=== PATIENT | male | born 1940 | race Asian ===

== ENCOUNTER 2017-09-15 16:00 | Inpatient (IN) | payer OTHER ==
[~2017-09-15] VITALS: Ht 162.6 cm; Wt 74.4 kg
[2017-09-15 16:00] VITALS: BP_SYST 132
[~2017-09-15 16:00] MED LIST: ALIS150T PO; HYDR12.5 PO; LIP20 PO; VALS320T2 PO
[2017-09-15 17:16] LABS: BASOPHILS % (AUTO) 0.8 % (0.0-2.0); EOSINOPHILS # (AUTO) 0.1 K/uL (0.0-0.4); EOSINOPHILS % (AUTO) 2.3 % (0.0-4.0); HEMATOCRIT 39.3 % (36-54); HEMOGLOBIN 12.8 g/dL (14.0-18.0); LYMPHOCYTES # (AUTO) 0.5 K/uL (1.0-5.5); LYMPHOCYTES % (AUTO) 9.1 % (20.5-51.5); MEAN CORPUSCULAR HEMOGLOBIN 29 pg (27-31); MEAN CORPUSCULAR HGB CONC 33 % (32-36); MEAN CORPUSCULAR VOLUME 87 fL (79.0-98.0); MONOCYTES # (AUTO) 0.2 K/uL (0.0-1.0); MONOCYTES % (AUTO) 4.1 % (1.7-9.3); NEUTROPHILS # (AUTO) 4.4 K/uL (1.8-7.7); NEUTROPHILS % (AUTO) 83.7 % (40.0-70.0); PLATELET COUNT (AUTO) 119 K/uL (130-430); RED BLOOD CELL COUNT(AUTO) 4.49 MIL/uL (4.2-6.2); RED CELL DISTRIBUTION WIDTH 16.2 % (9.0-15.0); WHITE BLOOD COUNT (AUTO) 5.2 K/uL (4.8-10.8)
[2017-09-15 17:18] LABS: ANION GAP 14 (5-15); CALCIUM 8.8 mg/dL (8.4-11.0); CHLORIDE 100 mmol/L (98-107); CREATININE 0.98 mg/dL (0.55-1.30); GLUCOSE 115 mg/dL (70-99); POTASSIUM 4.1 mmol/L (3.5-5.1); SODIUM SERUM 137 mmol/L (136-145); UREA NITROGEN, BLOOD 20 mg/dL (8-21)
[2017-09-15 17:34] LABS: ALANINE AMINOTRANSFERASE 41 U/L (12-78); ALBUMIN 3.1 g/dL (3.4-4.8); ASPARTATE AMINOTRANSFERASE 39 U/L (10-37); TOTAL BILIRUBIN 1.6 mg/dL (0.0-1.0)
[2017-09-15] MEDS ORDERED: IOHEXOL 350 mgI/mL, 150 ML INFUS..BTL IV ONE (17:51)
[2017-09-15 17:59] LABS: INR 1.1 (0.80-1.20); PROTHROMBIN TIME 10.9 SECS (9.5-12.5)
[2017-09-15] MEDS ORDERED: RIFA550T5 PO (18:40)
[2017-09-15] MEDS ORDERED: LACT10SO66 PO (18:40)
[2017-09-15] MEDS ORDERED: POTA20TA83 PO (18:40)
[2017-09-15] MEDS ORDERED: FURO-150 PO (18:40)
[2017-09-15] MEDS ORDERED: METF-510 PO (18:40)
[2017-09-15] MEDS ORDERED: DOCU-144 PO (18:40)
[2017-09-15] MEDS ORDERED: ENOXAPARIN SODIUM 80 MG/0.8 ML SYRINGE SUBCUT ONE (19:15)
[2017-09-15] MEDS ORDERED: INSULIN REGULAR, HUMAN 100 UNITS/ML, 10 ML VIAL (novoLIN R) SUBCUT PRN (20:00)
[2017-09-15 20:24] VITALS: BP_SYST 104
[2017-09-15] MEDS ORDERED: ACETAMINOPHEN 325 MG TABLET PO ONE (22:45)
[2017-09-15] MEDS ORDERED: ZOLPIDEM TARTRATE 5 MG TABLET PO PRN (22:45)
[2017-09-15 22:59] VITALS: BP_SYST 106
[2017-09-16 06:44] LABS: BASOPHILS % (AUTO) 0.6 % (0.0-2.0); EOSINOPHILS # (AUTO) 0.1 K/uL (0.0-0.4); EOSINOPHILS % (AUTO) 4.2 % (0.0-4.0); HEMATOCRIT 37.1 % (36-54); HEMOGLOBIN 12.4 g/dL (14.0-18.0); LYMPHOCYTES # (AUTO) 0.4 K/uL (1.0-5.5); LYMPHOCYTES % (AUTO) 12.4 % (20.5-51.5); MEAN CORPUSCULAR HEMOGLOBIN 30 pg (27-31); MEAN CORPUSCULAR HGB CONC 34 % (32-36); MEAN CORPUSCULAR VOLUME 88 fL (79.0-98.0); MONOCYTES # (AUTO) 0.2 K/uL (0.0-1.0); NEUTROPHILS # (AUTO) 2.8 K/uL (1.8-7.7); NEUTROPHILS % (AUTO) 75.8 % (40.0-70.0); RED CELL DISTRIBUTION WIDTH 16.2 % (9.0-15.0); WHITE BLOOD COUNT (AUTO) 3.5 K/uL (4.8-10.8)
[2017-09-16 06:49] LABS: ANION GAP 11 (5-15); CALCIUM 8.4 mg/dL (8.4-11.0); CHLORIDE 106 mmol/L (98-107); CREATININE 0.85 mg/dL (0.55-1.30); GLUCOSE 105 mg/dL (70-99); POTASSIUM 3.6 mmol/L (3.5-5.1); SODIUM SERUM 141 mmol/L (136-145); UREA NITROGEN, BLOOD 22 mg/dL (8-21)
[2017-09-16 06:55] LABS: ALANINE AMINOTRANSFERASE 31 U/L (12-78); ALBUMIN 2.7 g/dL (3.4-4.8); ASPARTATE AMINOTRANSFERASE 33 U/L (10-37); BILIRUBIN,DIRECT 0.4 mg/dL (0.0-0.3); TOTAL BILIRUBIN 0.9 mg/dL (0.0-1.0)
[2017-09-16 08:12] VITALS: BP_SYST 109
[2017-09-16] MEDS: LACTULOSE 20 GM/30 ML UDC PO SCH ×2 (09:06→20:47)
[2017-09-16] MEDS: ATORVASTATIN 10 MG TABLET PO SCH (09:06)
[2017-09-16] MEDS: VALSARTAN 160 MG TABLET (DIOVAN) PO SCH (09:07)
[2017-09-16] MEDS: FAMOTIDINE 20 MG TABLET PO SCH (09:07)
[2017-09-16] MEDS: DOCUSATE SODIUM 100 MG CAPSULE PO SCH ×2 (09:07→20:47)
[2017-09-16] MEDS: RIFAXIMIN 550 MG TABLET PO SCH ×2 (09:07→20:47)
[2017-09-16] MEDS: ENOXAPARIN SODIUM 80 MG/0.8 ML SYRINGE SUBCUT SCH ×2 (09:09→20:55)
[2017-09-16 11:02] LABS: PLATELET COUNT (AUTO) 98 K/uL (130-430)
[2017-09-16] MEDS ORDERED: ACETAMINOPHEN 325 MG TABLET PO PRN (11:30)
[2017-09-16 12:05] VITALS: BP_SYST 105
[2017-09-16 16:35] VITALS: BP_SYST 110
[2017-09-16 20:30] VITALS: BP_SYST 125
[2017-09-16 23:33] VITALS: BP_SYST 113
[2017-09-17 07:21] LABS: BASOPHILS % (AUTO) 0.4 % (0.0-2.0); EOSINOPHILS # (AUTO) 0.2 K/uL (0.0-0.4); HEMATOCRIT 33.3 % (36-54); HEMOGLOBIN 11.6 g/dL (14.0-18.0); LYMPHOCYTES # (AUTO) 0.5 K/uL (1.0-5.5); LYMPHOCYTES % (AUTO) 17.4 % (20.5-51.5); MEAN CORPUSCULAR HEMOGLOBIN 30 pg (27-31); MEAN CORPUSCULAR HGB CONC 35 % (32-36); MEAN CORPUSCULAR VOLUME 86 fL (79.0-98.0); MONOCYTES # (AUTO) 0.2 K/uL (0.0-1.0); MONOCYTES % (AUTO) 6.7 % (1.7-9.3); NEUTROPHILS # (AUTO) 1.7 K/uL (1.8-7.7); NEUTROPHILS % (AUTO) 69.5 % (40.0-70.0); PLATELET COUNT (AUTO) 123 K/uL (130-430); RED BLOOD CELL COUNT(AUTO) 3.85 MIL/uL (4.2-6.2); RED CELL DISTRIBUTION WIDTH 15.8 % (9.0-15.0); WHITE BLOOD COUNT (AUTO) 2.6 K/uL (4.8-10.8)
[2017-09-17 08:54] VITALS: BP_SYST 99
[2017-09-17] MEDS: RIFAXIMIN 550 MG TABLET PO SCH (08:59)
[2017-09-17] MEDS: FAMOTIDINE 20 MG TABLET PO SCH (08:59)
[2017-09-17] MEDS: VALSARTAN 160 MG TABLET (DIOVAN) PO SCH (08:59)
[2017-09-17] MEDS: DOCUSATE SODIUM 100 MG CAPSULE PO SCH (08:59)
[2017-09-17] MEDS: ATORVASTATIN 10 MG TABLET PO SCH (08:59)
[2017-09-17] MEDS ORDERED: COMMUNICATION ORDER XX ONE (09:00)
[2017-09-17] MEDS ORDERED: APIXABAN 2.5 MG TABLET PO SCH (09:00)
[2017-09-17] MEDS: LACTULOSE 20 GM/30 ML UDC PO SCH (09:00)
[2017-09-17 12:35] VITALS: BP_SYST 107
[2017-09-17 16:25] VITALS: BP_SYST 126
[2017-09-17] MEDS ORDERED: APIX5TAB PO (16:35)
[2017-09-17] MEDS ORDERED: NEXAVAR PO SCH (17:00)
== END 2017-09-17 17:00 | disposition home or self-care (01) | DRG 176 ==
LOC: SED 16:00 → STU 20:06
PROVIDERS: ADMIT Internal Medicine; ATTEND Internal Medicine
DX: I26.99 Other pulmonary embolism without acute cor pulmonale (principal); C22.0 Liver cell carcinoma; C78.6 Secondary malignant neoplasm of retroperitoneum and peritoneum; E11.9 Type 2 diabetes mellitus without complications; K58.9 Irritable bowel syndrome, unspecified; E78.5 Hyperlipidemia, unspecified; E78.00 Pure hypercholesterolemia, unspecified; I10 Essential (primary) hypertension; Z88.0 Allergy status to penicillin; Z86.73 Personal history of transient ischemic attack (TIA), and cerebral infarction without residual deficits; Z86.718 Personal history of other venous thrombosis and embolism; Z79.01 Long term (current) use of anticoagulants; Z79.899 Other long term (current) drug therapy; Z87.891 Personal history of nicotine dependence
CPT/HCPCS: 36415; 71045; 71275; 80048; 80053; 80076; 82105; 82550-TC; 82962; 83735-TC; 83880; 84484; 85025; 85379; 85610-TC; 85730-TC; 93005; 93970; 96372; 99285; J1650; J1815; Q9967

== ENCOUNTER 2017-11-11 09:34 | Emergency (ER) | payer OTHER ==
[~2017-11-11] VITALS: Ht 162.6 cm; Wt 74.8 kg
[~2017-11-11 09:34] MED LIST changes: -ALIS150T PO; +APIX5TAB PO; +DOCU-144 PO; -HYDR12.5 PO; +LACT10SO66 PO; -LIP20 PO; +RIFA550T5 PO; -VALS320T2 PO
[2017-11-11 09:46] VITALS: BP_SYST 142
[2017-11-11] MEDS ORDERED: NOR10 PO (09:56)
[2017-11-11] MEDS ORDERED: SORAFENIB PO (10:10)
[2017-11-11] MEDS ORDERED: KETOROLAC TROMETHAMINE 60 MG/2 ML VIAL IM ONE (10:15)
[2017-11-11 10:56] LABS: ANION GAP 12 (5-15); CALCIUM 8.6 mg/dL (8.4-11.0); CHLORIDE 108 mmol/L (98-107); GLUCOSE 129 mg/dL (70-99); POTASSIUM 4.8 mmol/L (3.5-5.1); SODIUM SERUM 138 mmol/L (136-145); UREA NITROGEN, BLOOD 12 mg/dL (8-21)
[2017-11-11 11:55] VITALS: BP_SYST 142
== END 2017-11-11 11:54 | disposition home or self-care (01) ==
LOC: SED 09:34
DX: M62.838 Other muscle spasm (principal); E11.9 Type 2 diabetes mellitus without complications; I10 Essential (primary) hypertension; E78.00 Pure hypercholesterolemia, unspecified; Z85.05 Personal history of malignant neoplasm of liver; Z86.73 Personal history of transient ischemic attack (TIA), and cerebral infarction without residual deficits; Z88.0 Allergy status to penicillin; Z79.899 Other long term (current) drug therapy
CPT/HCPCS: 36415; 80048; 93971; 96372; 99285; J1885

== ENCOUNTER 2018-04-29 13:35 | Outpatient (CLI) | payer OTHER ==
[~2018-04-29 13:35] MED LIST changes: +NOR10 PO; +SORAFENIB PO
== END 2018-04-29 21:21 | disposition home or self-care (01) ==
LOC: SUS 13:35
DX: R60.0 Localized edema (principal); E78.2 Mixed hyperlipidemia; C22.0 Liver cell carcinoma
CPT/HCPCS: 93971

== ENCOUNTER 2018-09-01 22:47 | Emergency (ER) | payer OTHER ==
[~2018-09-01] VITALS: Ht 162.6 cm; Wt 82.6 kg
[2018-09-01 23:11] VITALS: BP_SYST 108
[2018-09-02] MEDS ORDERED: NACL 0.9% 1,000 ML IV ONE (00:49)
[2018-09-02 01:44] LABS: BILIRUBIN,URINE NEGATIVE (NEGATIVE); BLOOD, URINE NEGATIVE (NEGATIVE); CLARITY/URINE CLEAR (CLEAR); COLOR,URINE YELLOW (YELLOW); GLUCOSE,URINE NEGATIVE (NEGATIVE); KETONES,URINE NEGATIVE (NEGATIVE); LEUKOCYTE ESTERASE ,URINE NEGATIVE (NEGATIVE); NITRITE, URINE NEGATIVE (NEGATIVE); PROTEIN URINE 1+ (NEGATIVE); UROBILINOGEN,URINE 0.2 (0.2-1.0)
[2018-09-02 01:47] LABS: BACTERIA,URINE FEW /HPF (None Seen); CALCIUM OXALATE CRYSTALS,UR 0-10 /HPF (None Seen); RBC,URINE 0-3 /HPF (0-3); WBC,URINE 0-3 /HPF (0-3)
[2018-09-02 01:53] LABS: BASOPHILS # (AUTO) 0.1 K/uL (0.0-0.2); BASOPHILS % (AUTO) 0.9 % (0.0-2.0); EOSINOPHILS # (AUTO) 1.2 K/uL (0.0-0.4); HEMATOCRIT 37.9 % (36-54); HEMOGLOBIN 12.2 g/dL (14.0-18.0); LYMPHOCYTES # (AUTO) 0.8 K/uL (1.0-5.5); LYMPHOCYTES % (AUTO) 11.1 % (20.5-51.5); MEAN CORPUSCULAR HEMOGLOBIN 27 pg (27-31); MEAN CORPUSCULAR HGB CONC 32 % (32-36); MEAN CORPUSCULAR VOLUME 84 fL (79.0-98.0); MONOCYTES # (AUTO) 0.6 K/uL (0.0-1.0); MONOCYTES % (AUTO) 8.9 % (1.7-9.3); NEUTROPHILS # (AUTO) 4.4 K/uL (1.8-7.7); NEUTROPHILS % (AUTO) 62.1 % (40.0-70.0); PLATELET COUNT (AUTO) 148 K/uL (130-430); RED BLOOD CELL COUNT(AUTO) 4.52 MIL/uL (4.2-6.2); RED CELL DISTRIBUTION WIDTH 17.7 % (9.0-15.0); WHITE BLOOD COUNT (AUTO) 7.1 K/uL (4.8-10.8)
[2018-09-02 01:54] LABS: ANION GAP 6 (5-15); CALCIUM 9.2 mg/dL (8.4-11.0); CHLORIDE 103 mmol/L (98-107); CREATININE 1.04 mg/dL (0.55-1.30); GLUCOSE 105 mg/dL (70-99); POTASSIUM 4.3 mmol/L (3.5-5.1); SODIUM SERUM 140 mmol/L (136-145); UREA NITROGEN, BLOOD 19 mg/dL (8-21)
[2018-09-02 02:00] LABS: ALANINE AMINOTRANSFERASE 36 U/L (12-78); ALBUMIN 3.3 g/dL (3.4-4.8); ASPARTATE AMINOTRANSFERASE 24 U/L (10-37); TOTAL BILIRUBIN 0.3 mg/dL (0.0-1.0)
[2018-09-02] MEDS ORDERED: HYDROcodone/ACETAMIN 7.5-325 MG TAB PO ONE (03:00)
[2018-09-02 03:35] VITALS: BP_SYST 108
== END 2018-09-02 03:35 | disposition home or self-care (01) ==
LOC: SED 22:47
DX: K59.00 Constipation, unspecified (principal); E11.9 Type 2 diabetes mellitus without complications; I10 Essential (primary) hypertension; E78.00 Pure hypercholesterolemia, unspecified; Z86.73 Personal history of transient ischemic attack (TIA), and cerebral infarction without residual deficits; Z85.05 Personal history of malignant neoplasm of liver; Z88.0 Allergy status to penicillin; Z79.899 Other long term (current) drug therapy
CPT/HCPCS: 36415; 74176; 80053; 81000; 85025; 99284; J7030

== ENCOUNTER 2018-09-09 20:45 | Inpatient (IN) | payer OTHER ==
[~2018-09-09] VITALS: Ht 162.6 cm; Wt 81.6 kg
[2018-09-09 20:50] VITALS: BP_SYST 117
[2018-09-09 21:41] LABS: BASOPHILS # (AUTO) 0.1 K/uL (0.0-0.2); EOSINOPHILS # (AUTO) 0.4 K/uL (0.0-0.4); EOSINOPHILS % (AUTO) 3.8 % (0.0-4.0); HEMATOCRIT 41.8 % (36-54); HEMOGLOBIN 13.7 g/dL (14.0-18.0); LYMPHOCYTES # (AUTO) 0.7 K/uL (1.0-5.5); LYMPHOCYTES % (AUTO) 6.8 % (20.5-51.5); MEAN CORPUSCULAR HEMOGLOBIN 28 pg (27-31); MEAN CORPUSCULAR HGB CONC 33 % (32-36); MEAN CORPUSCULAR VOLUME 84 fL (79.0-98.0); MONOCYTES # (AUTO) 0.6 K/uL (0.0-1.0); MONOCYTES % (AUTO) 5.8 % (1.7-9.3); NEUTROPHILS % (AUTO) 82.6 % (40.0-70.0); PLATELET COUNT (AUTO) 197 K/uL (130-430); RED BLOOD CELL COUNT(AUTO) 4.95 MIL/uL (4.2-6.2); RED CELL DISTRIBUTION WIDTH 17.5 % (9.0-15.0); WHITE BLOOD COUNT (AUTO) 9.6 K/uL (4.8-10.8)
[2018-09-09 21:49] LABS: ANION GAP 9 (5-15); CALCIUM 9.7 mg/dL (8.4-11.0); CHLORIDE 105 mmol/L (98-107); CREATININE 0.96 mg/dL (0.55-1.30); GLUCOSE 150 mg/dL (70-99); POTASSIUM 3.8 mmol/L (3.5-5.1); SODIUM SERUM 141 mmol/L (136-145); UREA NITROGEN, BLOOD 21 mg/dL (8-21)
[2018-09-09 21:59] LABS: ALANINE AMINOTRANSFERASE 35 U/L (12-78); ALBUMIN 3.6 g/dL (3.4-4.8); ASPARTATE AMINOTRANSFERASE 24 U/L (10-37); TOTAL BILIRUBIN 0.6 mg/dL (0.0-1.0)
[2018-09-10 01:50] LABS: BILIRUBIN,URINE NEGATIVE (NEGATIVE); BLOOD, URINE NEGATIVE (NEGATIVE); CLARITY/URINE CLEAR (CLEAR); COLOR,URINE YELLOW (YELLOW); GLUCOSE,URINE NEGATIVE (NEGATIVE); KETONES,URINE NEGATIVE (NEGATIVE); LEUKOCYTE ESTERASE ,URINE NEGATIVE (NEGATIVE); NITRITE, URINE NEGATIVE (NEGATIVE); PH,URINE 6.5 (5.0-8.0); PROTEIN URINE 1+ (NEGATIVE); UROBILINOGEN,URINE 0.2 (0.2-1.0)
[2018-09-10 01:55] LABS: BACTERIA,URINE FEW /HPF (None Seen); HYALINE CASTS, URINE 0-10 /LPF (None Seen); RBC,URINE 0-3 /HPF (0-3); WBC,URINE 0-3 /HPF (0-3)
[2018-09-10] MEDS ORDERED: MORPHINE 4 MG/ML INJ. SYRINGE IVP ONE (02:00)
[2018-09-10] MEDS ORDERED: IOHEXOL 100 ML IV ONE (02:29)
[2018-09-10 02:41] LABS: AMYLASE 41 U/L (0-100); LIPASE 66 U/L (73-393)
[2018-09-10 02:42] LABS: PROTHROMBIN TIME 9.9 SECS (9.5-12.5)
[2018-09-10] MEDS ORDERED: TRAM-350 PO (03:16)
[2018-09-10] MEDS ORDERED: PRED10TA PO (03:16)
[2018-09-10] MEDS ORDERED: FEXO180T94 PO (03:16)
[2018-09-10] MEDS ORDERED: ONDANSETRON HCL 4 MG/2 ML VIAL IVP PRN (05:45)
[2018-09-10] MEDS ORDERED: KCL 20 mEq in D5/0.45NS 1000mL 1,000 ML IV SCH (05:45)
[2018-09-10 10:44] VITALS: BP_SYST 135
[2018-09-10] MEDS: KCL 20 mEq in D5/0.45NS 1000mL 1,000 ML IV SCH ×2 (11:15→22:16)
[2018-09-10] MEDS ORDERED: PREDNISONE 10 MG TABLET PO ONE (14:00)
[2018-09-10 15:47] VITALS: BP_SYST 141
[2018-09-10] MEDS: amLODIPine BESYLATE 10 MG TABLET PO SCH (17:27)
[2018-09-10 21:22] VITALS: BP_SYST 142
[2018-09-10] MEDS: DOCUSATE SODIUM 100 MG CAPSULE PO SCH (22:16)
[2018-09-10] MEDS: LACTULOSE 20 GM/30 ML UDC PO SCH (22:17)
[2018-09-10] MEDS: SENNOSIDES 8.6 MG TABLET PO SCH (22:17)
[2018-09-10] MEDS: RIFAXIMIN 550 MG TABLET PO SCH (22:18)
[2018-09-10] MEDS: HYDROmorphone 2 MG/ML VIAL IVP PRN (22:18)
[2018-09-10] MEDS: APIXABAN 2.5 MG TABLET PO SCH (22:19)
[2018-09-11 00:12] VITALS: BP_SYST 112
[2018-09-11 08:00] VITALS: BP_SYST 131
[2018-09-11] MEDS: LACTULOSE 20 GM/30 ML UDC PO SCH ×2 (09:49→21:22)
[2018-09-11] MEDS: APIXABAN 2.5 MG TABLET PO SCH ×2 (09:50→21:23)
[2018-09-11] MEDS: PREDNISONE 10 MG TABLET PO SCH (09:50)
[2018-09-11] MEDS: RIFAXIMIN 550 MG TABLET PO SCH ×2 (09:50→21:22)
[2018-09-11] MEDS: HYDROmorphone 2 MG/ML VIAL IVP PRN ×2 (09:51→21:23)
[2018-09-11] MEDS: DOCUSATE SODIUM 100 MG CAPSULE PO SCH ×2 (09:51→21:22)
[2018-09-11] MEDS: KCL 20 mEq in D5/0.45NS 1000mL 1,000 ML IV SCH ×2 (12:01→21:22)
[2018-09-11 13:13] VITALS: BP_SYST 125
[2018-09-11 17:24] VITALS: BP_SYST 124
[2018-09-11] MEDS: amLODIPine BESYLATE 10 MG TABLET PO SCH (17:59)
[2018-09-11 20:14] VITALS: BP_SYST 132
[2018-09-11] MEDS: SENNOSIDES 8.6 MG TABLET PO SCH (21:22)
[2018-09-12 00:31] VITALS: BP_SYST 122
[2018-09-12 08:00] VITALS: BP_SYST 133
[2018-09-12] MEDS: DOCUSATE SODIUM 100 MG CAPSULE PO SCH ×2 (08:50→20:32)
[2018-09-12] MEDS: LACTULOSE 20 GM/30 ML UDC PO SCH ×2 (08:52→20:32)
[2018-09-12] MEDS: APIXABAN 2.5 MG TABLET PO SCH ×2 (08:52→20:38)
[2018-09-12] MEDS: PREDNISONE 10 MG TABLET PO SCH (08:52)
[2018-09-12] MEDS: RIFAXIMIN 550 MG TABLET PO SCH ×2 (08:54→20:33)
[2018-09-12] MEDS: KCL 20 mEq in D5/0.45NS 1000mL 1,000 ML IV SCH ×2 (11:57→14:15)
[2018-09-12 12:23] VITALS: BP_SYST 138
[2018-09-12 16:26] VITALS: BP_SYST 132
[2018-09-12] MEDS: amLODIPine BESYLATE 10 MG TABLET PO SCH (18:34)
[2018-09-12 20:30] VITALS: BP_SYST 139
[2018-09-12] MEDS: SENNOSIDES 8.6 MG TABLET PO SCH (20:32)
[2018-09-13] VITALS: BP_SYST 126
[2018-09-13] MEDS: KCL 20 mEq in D5/0.45NS 1000mL 1,000 ML IV SCH ×2 (04:30→18:00)
[2018-09-13 07:39] VITALS: BP_SYST 147
[2018-09-13] MEDS: RIFAXIMIN 550 MG TABLET PO SCH ×2 (08:24→20:15)
[2018-09-13] MEDS: PREDNISONE 10 MG TABLET PO SCH (08:24)
[2018-09-13] MEDS: DOCUSATE SODIUM 100 MG CAPSULE PO SCH ×2 (08:24→20:15)
[2018-09-13] MEDS: APIXABAN 2.5 MG TABLET PO SCH ×2 (08:25→20:17)
[2018-09-13] MEDS: LACTULOSE 20 GM/30 ML UDC PO SCH ×2 (08:26→20:15)
[2018-09-13] MEDS: HYDROmorphone 2 MG/ML VIAL IVP PRN ×3 (08:27→17:58)
[2018-09-13 12:42] VITALS: BP_SYST 133
[2018-09-13 16:09] VITALS: BP_SYST 118
[2018-09-13] MEDS: amLODIPine BESYLATE 10 MG TABLET PO SCH (17:10)
[2018-09-13 20:00] VITALS: BP_SYST 125
[2018-09-13] MEDS: SENNOSIDES 8.6 MG TABLET PO SCH (20:15)
[2018-09-14 01:24] VITALS: BP_SYST 143
[2018-09-14] MEDS: KCL 20 mEq in D5/0.45NS 1000mL 1,000 ML IV SCH (06:41)
[2018-09-14 08:00] VITALS: BP_SYST 138
[2018-09-14] MEDS: DOCUSATE SODIUM 100 MG CAPSULE PO SCH (08:53)
[2018-09-14] MEDS: RIFAXIMIN 550 MG TABLET PO SCH (08:55)
[2018-09-14] MEDS: LACTULOSE 20 GM/30 ML UDC PO SCH (08:55)
[2018-09-14] MEDS: APIXABAN 2.5 MG TABLET PO SCH (08:55)
[2018-09-14] MEDS: PREDNISONE 10 MG TABLET PO SCH (08:55)
[2018-09-14] MEDS: HYDROmorphone 2 MG/ML VIAL IVP PRN ×2 (08:57→14:53)
[2018-09-14 12:43] VITALS: BP_SYST 126
[2018-09-14 16:21] VITALS: BP_SYST 129
== END 2018-09-14 19:30 | DRG 543 ==
LOC: SED 20:45 → SMU 09-10 05:35
PROVIDERS: ADMIT Family Medicine; ATTEND Family Medicine
DX: M48.56XA Collapsed vertebra, not elsewhere classified, lumbar region, initial encounter for fracture (principal); C22.7 Other specified carcinomas of liver; D64.9 Anemia, unspecified; I10 Essential (primary) hypertension; Z86.711 Personal history of pulmonary embolism; Z88.0 Allergy status to penicillin; Z79.899 Other long term (current) drug therapy
CPT/HCPCS: 36415; 72080-TC; 80053; 81000-TC; 82150-TC; 83690-TC; 85025; 85610-TC; 96374; 97116-GP; 97530-GP; 99285; J1170; J2270; J7512; Q9967

== ENCOUNTER 2018-10-27 07:06 | Emergency (ER) | payer OTHER ==
[~2018-10-27] VITALS: Ht 162.6 cm; Wt 77.1 kg
[2018-10-27 07:06] VITALS: BP_SYST 144
[~2018-10-27 07:06] MED LIST changes: +FEXO180T94 PO; +PRED10TA PO; -SORAFENIB PO; +TRAM-350 PO
--- NOTE | 2018-10-27 07:06 | NUR ---
ASSISTED BACK TO BED #8 AND TRIAGED. REPORT GIVEN TO ANA
--- NOTE | 2018-10-27 07:20 | NUR ---
Patient presented to ER with left hip pain. Patient A&Ox4, afebrile, ambulatory to ER, pain 10/10 with ambulation, 2/10 in laying position, denies N/V/D. Patient brought in by caregiver. Patient states hip pain started yesterday, medicated at hime with tramadol, Oxycodone and gababpentin, pain increased this mornig prompting ER visite. Patient has health Hx, Liver Ca & HTN.
--- NOTE | 2018-10-27 07:47 | NUR ---
DR VILLALPANDO AT BEDSIDE FOR EVALUATION
--- NOTE | 2018-10-27 07:50 | NUR ---
ER Dr. Mobley at bedside examining patient.
[2018-10-27 08:15] LABS: BASOPHILS % (AUTO) 0.7 % (0.0-2.0); EOSINOPHILS # (AUTO) 0.2 K/uL (0.0-0.4); EOSINOPHILS % (AUTO) 2.7 % (0.0-4.0); HEMATOCRIT 38.9 % (36-54); HEMOGLOBIN 12.6 g/dL (14.0-18.0); LYMPHOCYTES # (AUTO) 0.7 K/uL (1.0-5.5); LYMPHOCYTES % (AUTO) 11.5 % (20.5-51.5); MEAN CORPUSCULAR HEMOGLOBIN 28 pg (27-31); MEAN CORPUSCULAR HGB CONC 33 % (32-36); MEAN CORPUSCULAR VOLUME 87 fL (79.0-98.0); MONOCYTES # (AUTO) 0.3 K/uL (0.0-1.0); MONOCYTES % (AUTO) 5.3 % (1.7-9.3); NEUTROPHILS % (AUTO) 79.8 % (40.0-70.0); RED BLOOD CELL COUNT(AUTO) 4.48 MIL/uL (4.2-6.2); RED CELL DISTRIBUTION WIDTH 19.1 % (9.0-15.0); WHITE BLOOD COUNT (AUTO) 6.2 K/uL (4.8-10.8)
[2018-10-27 08:21] LABS: CALCIUM 8.8 mg/dL (8.4-11.0); CHLORIDE 105 mmol/L (98-107); CREATININE 0.87 mg/dL (0.55-1.30); GLUCOSE 94 mg/dL (70-99); POTASSIUM 4.6 mmol/L (3.5-5.1); SODIUM SERUM 137 mmol/L (136-145); UREA NITROGEN, BLOOD 25 mg/dL (8-21)
[2018-10-27 08:24] LABS: ANION GAP < 3 (5-15)
[2018-10-27 08:26] LABS: ALANINE AMINOTRANSFERASE 33 U/L (12-78); ALBUMIN 2.9 g/dL (3.4-4.8); ASPARTATE AMINOTRANSFERASE 20 U/L (10-37); LIPASE 92 U/L (73-393); TOTAL BILIRUBIN 0.3 mg/dL (0.0-1.0)
[2018-10-27 09:05] LABS: PLATELET COUNT (AUTO) 88 K/uL (130-430)
[2018-10-27] MEDS ORDERED: MORPHINE 4 MG/ML INJ. SYRINGE IM ONE (09:30)
[2018-10-27 10:30] VITALS: BP_SYST 144
--- NOTE | 2018-10-27 10:30 | NUR ---
Patient given written and verbal discharge instructions and verbalizes understanding. ER MD discussed with patient the results and treatment provided. Patient in stable condition. ID arm band removed. IV catheter removed intact and dressing applied, no active bleeding. No Rx given. Patient educated on pain management and to follow up with PMD. Pain Scale 2/10 tolerable . Opportunity for questions provided and answered. Medication side effect fact sheet provided.
== END 2018-10-27 10:30 | disposition home or self-care (01) ==
LOC: SED 07:06
DX: M25.552 Pain in left hip (principal); E11.9 Type 2 diabetes mellitus without complications; I10 Essential (primary) hypertension; Z85.05 Personal history of malignant neoplasm of liver; Z86.79 Personal history of other diseases of the circulatory system; Z79.01 Long term (current) use of anticoagulants; Z79.899 Other long term (current) drug therapy; Z88.0 Allergy status to penicillin
CPT/HCPCS: 36415; 74176; 80053; 85025; 83690; 96372; 99284; J2270

== ENCOUNTER 2018-12-01 08:51 | Emergency (ER) | payer OTHER ==
[~2018-12-01] VITALS: Ht 162.6 cm; Wt 75.7 kg
[2018-12-01 09:32] VITALS: BP_SYST 148
--- NOTE | 2018-12-01 10:15 | NUR ---
Patient to ER bed 2 to gown for evaluation. Side rails up. Report given to CARON LEGER.
--- NOTE | 2018-12-01 10:20 | NUR ---
pt arrives from home w/ c/o hard of hearing on the right ear for 2 days. Pt denies trauma to the area.
--- NOTE | 2018-12-01 10:30 | NUR ---
ER at bedside examining patient.
[2018-12-01 11:14] VITALS: BP_SYST 148
--- NOTE | 2018-12-01 11:15 | NUR ---
Patient given written and verbal discharge instructions and verbalizes understanding. ER MD discussed with patient the results and treatment provided. Patient in stable condition. ID arm band removed. Patient educated on pain management and to follow up with PMD. Pain Scale 0/10.Opportunity for questions provided and answered. Medication side effect fact sheet provided.
== END 2018-12-01 11:15 | disposition home or self-care (01) ==
LOC: SED 08:51
DX: H91.91 Unspecified hearing loss, right ear (principal); E78.00 Pure hypercholesterolemia, unspecified; E11.9 Type 2 diabetes mellitus without complications; I10 Essential (primary) hypertension; Z86.73 Personal history of transient ischemic attack (TIA), and cerebral infarction without residual deficits; Z85.05 Personal history of malignant neoplasm of liver; Z88.0 Allergy status to penicillin; Z79.899 Other long term (current) drug therapy
CPT/HCPCS: 99281

== ENCOUNTER 2018-12-01 11:32 | Outpatient (CLI) | payer OTHER | END 2018-12-01 20:53 | disposition home or self-care (01) | LOC: SCA 11:32 | DX: Z01.810 Encounter for preprocedural cardiovascular examination (principal) | CPT/HCPCS: 93005 ==

== ENCOUNTER 2019-01-16 10:33 | Emergency (ER) | payer OTHER ==
[~2019-01-16] VITALS: Ht 149.9 cm; Wt 79.4 kg
[2019-01-16 10:46] VITALS: BP_SYST 128
--- NOTE | 2019-01-16 10:55 | NUR ---
Placed in room 2 . Placed on monitoring specialist, blood pressure machine and pulse oximeter. To gown for exam. Side rails up.
--- NOTE | 2019-01-16 11:05 | NUR ---
pt bib BLS and is in custody. Pt stated that he had a BS of 405. Current BS is 264. No other c/o at the moment.
--- NOTE | 2019-01-16 11:07 | NUR ---
DYLAN Florence at bedside examining patient.
--- NOTE | 2019-01-16 11:13 | NUR ---
Patient given written and verbal discharge instructions and verbalizes understanding. ER MD discussed with patient the results and treatment provided. Patient in stable condition. ID arm band removed. Rx of Bactrim given. Patient educated on pain management and to follow up with PMD. Pain Scale 0/10. Opportunity for questions provided and answered. Medication side effect fact sheet provided.
--- NOTE | 2019-01-16 11:13 | NUR ---
wound care done by Enrike LEGER. Calmaseptine ointment applied. Covered w/ dressing
== END 2019-01-16 11:20 | disposition home or self-care (01) ==
LOC: SED 10:33
DX: L89.151 Pressure ulcer of sacral region, stage 1 (principal); E11.9 Type 2 diabetes mellitus without complications; I10 Essential (primary) hypertension; E78.00 Pure hypercholesterolemia, unspecified; Z88.0 Allergy status to penicillin; Z79.899 Other long term (current) drug therapy
CPT/HCPCS: 99283

== ENCOUNTER 2019-08-31 15:28 | Emergency (ER) | payer OTHER ==
[~2019-08-31] VITALS: Ht 162.6 cm; Wt 77.6 kg
[2019-08-31 15:30] VITALS: BP_SYST 109
[2019-08-31] MEDS ORDERED: APIX5TAB4 PO (16:46)
[2019-08-31] MEDS ORDERED: FURO-150 PO (16:47)
[2019-08-31] MEDS ORDERED: GABA-531 PO (16:48)
[2019-08-31] MEDS ORDERED: POTA20TA83 PO (16:49)
[2019-08-31] MEDS ORDERED: NS 250 ML IV ONE (17:00)
[2019-08-31 17:35] LABS: BASOPHILS # (AUTO) 0.1 K/uL (0.0-0.2); BASOPHILS % (AUTO) 1.1 % (0.0-2.0); EOSINOPHILS # (AUTO) 0.2 K/uL (0.0-0.4); HEMATOCRIT 36.7 % (36-54); HEMOGLOBIN 11.9 g/dL (14.0-18.0); LYMPHOCYTES # (AUTO) 0.6 K/uL (1.0-5.5); MEAN CORPUSCULAR HEMOGLOBIN 28 pg (27-31); MEAN CORPUSCULAR HGB CONC 32 % (32-36); MEAN CORPUSCULAR VOLUME 85 fL (79.0-98.0); MONOCYTES # (AUTO) 0.4 K/uL (0.0-1.0); MONOCYTES % (AUTO) 6.3 % (1.7-9.3); NEUTROPHILS # (AUTO) 4.4 K/uL (1.8-7.7); NEUTROPHILS % (AUTO) 78.6 % (40.0-70.0); PLATELET COUNT (AUTO) 159 K/uL (130-430); RED BLOOD CELL COUNT(AUTO) 4.31 MIL/uL (4.2-6.2); RED CELL DISTRIBUTION WIDTH 16.7 % (9.0-15.0); WHITE BLOOD COUNT (AUTO) 5.5 K/uL (4.8-10.8)
[2019-08-31] MEDS ORDERED: NS 500 ML IV ONE (18:00)
[2019-08-31 18:16] LABS: PROTHROMBIN TIME 9.8 SECS (9.5-12.5)
[2019-08-31 18:23] LABS: ANION GAP 8 (5-15); CALCIUM 8.9 mg/dL (8.4-11.0); CHLORIDE 104 mmol/L (98-107); CREATININE 0.98 mg/dL (0.55-1.30); GLUCOSE 142 mg/dL (70-99); POTASSIUM 3.2 mmol/L (3.5-5.1); SODIUM SERUM 138 mmol/L (136-145); UREA NITROGEN, BLOOD 14 mg/dL (8-21)
[2019-08-31 18:28] LABS: ALANINE AMINOTRANSFERASE 25 U/L (12-78); ASPARTATE AMINOTRANSFERASE 19 U/L (10-37); TOTAL BILIRUBIN 0.3 mg/dL (0.0-1.0)
[2019-08-31 19:21] LABS: BILIRUBIN,URINE NEGATIVE (NEGATIVE); BLOOD, URINE 3+ (NEGATIVE); CLARITY/URINE CLEAR (CLEAR); COLOR,URINE YELLOW (YELLOW); GLUCOSE,URINE NEGATIVE (NEGATIVE); KETONES,URINE NEGATIVE (NEGATIVE); LEUKOCYTE ESTERASE ,URINE NEGATIVE (NEGATIVE); NITRITE, URINE NEGATIVE (NEGATIVE); PROTEIN URINE 1+ (NEGATIVE); UROBILINOGEN,URINE 0.2 (0.2-1.0)
[2019-08-31 19:23] VITALS: BP_SYST 109
[2019-08-31 19:42] LABS: BACTERIA,URINE FEW /HPF (None Seen); WBC,URINE 0-3 /HPF (0-3)
== END 2019-08-31 19:23 | disposition home or self-care (01) ==
LOC: SED 15:28
DX: R53.1 Weakness (principal); E78.00 Pure hypercholesterolemia, unspecified; I10 Essential (primary) hypertension; I48.91 Unspecified atrial fibrillation; E11.9 Type 2 diabetes mellitus without complications; Z85.05 Personal history of malignant neoplasm of liver; Z86.73 Personal history of transient ischemic attack (TIA), and cerebral infarction without residual deficits; Z86.718 Personal history of other venous thrombosis and embolism; Z79.899 Other long term (current) drug therapy; Z88.0 Allergy status to penicillin
CPT/HCPCS: 36415; 71045; 80053; 81000; 83605; 84484; 85025; 85610; 85730; 87040; 87086; 93005; 99285; J7040; J7050

== ENCOUNTER 2021-04-18 03:36 | Emergency (ER) | payer OTHER ==
[~2021-04-18] VITALS: Ht 162.6 cm; Wt 81.6 kg
[~2021-04-18 03:36] MED LIST changes: -APIX5TAB PO; +APIX5TAB4 PO; +FURO-150 PO; +GABA-531 PO; +POTA-197 PO; -PRED10TA PO
[2021-04-18 03:53] VITALS: BP_SYST 120
[2021-04-18] MEDS ORDERED: ACETAMINOPHEN 500 MG TABLET ONE (04:29)
[2021-04-18] MEDS ORDERED: ACETAMINOPHEN 500 MG TABLET PO ONE (04:30)
[2021-04-18] MEDS ORDERED: ACET1TAB23 PO (05:46)
[2021-04-18 07:51] VITALS: BP_SYST 110
[2021-04-18] MEDS ORDERED: BACITRACIN 1 GM OINT TP ONE (08:01)
== END 2021-04-18 08:35 | disposition home or self-care (01) ==
LOC: SED 03:36
DX: S20.212A Contusion of left front wall of thorax, initial encounter (principal); I10 Essential (primary) hypertension; E11.9 Type 2 diabetes mellitus without complications; Z88.0 Allergy status to penicillin; Z79.899 Other long term (current) drug therapy; W18.39XA Other fall on same level, initial encounter; Y93.89 Activity, other specified; Y92.89 Other specified places as the place of occurrence of the external cause; Y99.8 Other external cause status
CPT/HCPCS: 71045; 71100; 72128; 76376; 99284

== ENCOUNTER 2021-08-24 12:26 | Inpatient (IN) | payer OTHER ==
[~2021-08-24] VITALS: Ht 162.6 cm; Wt 78.0 kg
[2021-08-24 12:31] VITALS: BP_SYST 114
[2021-08-24] MEDS ORDERED: iohexoL 350 mgI/mL, 100 ML INFUS..BTL IV ONE (13:09)
[2021-08-24] MEDS ORDERED: IOHEXOL 350 mgI/mL, 150 ML INFUS..BTL IV ONE (13:10)
--- NOTE | 2021-08-24 15:21 | NUR ---
Patient to ER bed 4 to gown for evaluation. Side rails up. Report given to MATHEUS LEGER.
--- NOTE | 2021-08-24 15:57 | NUR ---
REPORT RECEIVED, PT WITH EYES CLOSED, RESP EVEN AND UNLABORED,ON RA @98%. VSS.
[2021-08-24] MEDS ORDERED: BETA15OI3 (15:58)
[2021-08-24 16:00] LABS: ANION GAP 8 (5-15); BASOPHILS % (AUTO) 0.4 % (0.0-2.0); CALCIUM 9.2 mg/dL (8.4-11.0); CHLORIDE 107 mmol/L (98-107); EOSINOPHILS # (AUTO) 0.1 K/uL (0.0-0.4); EOSINOPHILS % (AUTO) 1.9 % (0.0-4.0); GLUCOSE 125 mg/dL (70-99); HEMATOCRIT 47.1 % (36-54); HEMOGLOBIN 15.7 g/dL (14.0-18.0); LYMPHOCYTES # (AUTO) 0.6 K/uL (1.0-5.5); LYMPHOCYTES % (AUTO) 8.3 % (20.5-51.5); MEAN CORPUSCULAR HEMOGLOBIN 30 pg (27-31); MEAN CORPUSCULAR HGB CONC 33 % (32-36); MEAN CORPUSCULAR VOLUME 89 fL (79.0-98.0); MONOCYTES # (AUTO) 0.4 K/uL (0.0-1.0); MONOCYTES % (AUTO) 5.5 % (1.7-9.3); NEUTROPHILS # (AUTO) 6.2 K/uL (1.8-7.7); NEUTROPHILS % (AUTO) 83.9 % (40.0-70.0); PLATELET COUNT (AUTO) 106 K/uL (130-430); POTASSIUM 3.9 mmol/L (3.5-5.1); RED CELL DISTRIBUTION WIDTH 14.6 % (9.0-15.0); SODIUM SERUM 139 mmol/L (136-145); UREA NITROGEN, BLOOD 29 mg/dL (8-21); WHITE BLOOD COUNT (AUTO) 7.4 K/uL (4.8-10.8)
--- NOTE | 2021-08-24 16:08 | NUR ---
Pt is a 80 yo M who has a hx of liver cancer on chemotherapy, DM, HDL, HTN, prior CVA who presents to the ED from home. He reports that he fell yesterday and was unable to get up. he was on the ground overnight until today when he was found by a caregiver. he does not fully recall how he fell. his last seen normal was about 2 days ago. he reports he has pain on his R side, but no place in particular where he was laying on the ground. he denies LOC, fever, vomiting, chest pain, SOB, ab pain, hip pain. he reports he felt generally too weak to get up but did not have weakness in one particular part of his body greater than others.
[2021-08-24 16:11] LABS: TOTAL BILIRUBIN 1.8 mg/dL (0.0-1.0)
[2021-08-24 16:12] LABS: ALANINE AMINOTRANSFERASE 23 U/L (12-78); ALBUMIN 3.3 g/dL (3.4-4.8); ASPARTATE AMINOTRANSFERASE 62 U/L (10-37); LIPASE 87 U/L (73-393)
[2021-08-24 16:13] LABS: ALCOHOL, BLOOD < 3 mg/dL (<10)
--- NOTE | 2021-08-24 16:27 | NUR ---
MIESHAID swabbed, sent to lab.
[2021-08-24 16:34] LABS: CREATINE KINASE MB 13.5 ng/mL (0-3.6)
--- NOTE | 2021-08-24 16:49 | NUR ---
Caregiver: Kaylee Braden
[2021-08-24] MEDS ORDERED: CEFEPIME 1 GM in D5W 50 ML IV ONE (17:30)
[2021-08-24] MEDS ORDERED: VANCOMYCIN HCL 1,000 MG in NS 250 ML IV ONE (17:30)
[2021-08-24] MEDS ORDERED: NACL 0.9% 1,000 ML IV ONE ×2 (17:30)
--- NOTE | 2021-08-24 17:31 | NUR ---
NO ACUTE CHANGES IN CONDITION, PT IN NAD. RESP EVEN AND UNALBORED, OON RA @98%
[2021-08-24] MEDS ORDERED: CEFEPIME 1 GM/VIAL (MAXIPIME) ONE (18:32)
--- NOTE | 2021-08-24 18:39 | NUR ---
Admit bed requested Patient will be admitted to care of . Admitted to TELE unit. Diagnosis HX FALL, R/O CVA, HX FALL, UTI Inpatient (Yes or No) YES Observation (Yes or No) NO Orientation concerns or request close to nursing station (Yes or No) NO Covid Status NEGATIVE On vent or bipap NO Isolation requirements NO Needs a sitter NO From Home (Yes or if No enter name of facility) HOME Requires Dialysis (Yes or No) NO Med Rec Completed (Yes of No) YES
--- NOTE | 2021-08-24 19:12 | NUR ---
REPORT GIVEN TO JATIN LEGER, UPDATED ON STATUS, LABS AND VITALS.
--- NOTE | 2021-08-24 20:10 | NUR ---
193- REPORT FROM AFRICA JONES. PT PENDING ADMISSION A/OX 4 CLEAR SPEECH VSS. WANT STO GO PEE. CONTINUED MONITORING
--- NOTE | 2021-08-24 20:25 | NUR ---
DYLAN BRUCE, ASSISTING PT FOR UA COLLECTION. TACKER OFF NOTIFIED ME OF RIGHT SHOULD DISLOCATION. GOOD RADIAL PULSES PALPATED, RIGHT ARM WARM TO TOUCH, JANNIE < 0.02 SEC.
--- NOTE | 2021-08-24 20:30 | NUR ---
RIGHT SHOULDER DISLOCATION REPORTED TO JODY, CHARGE NURSE. DR NAVARRO MADE AWARE BY DYLAN FAULKNER
--- NOTE | 2021-08-24 20:43 | NUR ---
Urine collected, sent to the lab.
[2021-08-24 20:49] LABS: BILIRUBIN,URINE NEGATIVE (NEGATIVE); BLOOD, URINE 3+ (NEGATIVE); COLOR,URINE YELLOW (YELLOW); GLUCOSE,URINE NEGATIVE (NEGATIVE); KETONES,URINE 2+ (NEGATIVE); LEUKOCYTE ESTERASE ,URINE NEGATIVE (NEGATIVE); NITRITE, URINE NEGATIVE (NEGATIVE); PH,URINE 6.5 (5.0-8.0); PROTEIN URINE 2+ (NEGATIVE)
[2021-08-24 20:50] LABS: CLARITY/URINE HAZY (CLEAR)
--- NOTE | 2021-08-24 20:55 | NUR ---
ADMITTING DR. KENDALL CALLED AND MADE AWARE OF PT'S RIGHT SHOULDER DISLOCATION AND XRAYS ORDERED.
[2021-08-24 21:00] LABS: BARBITURATE, URINE NEGATIVE (NEG <=200); BENZODIAZEPINE, URINE NEGATIVE (NEG <=150); CANNABINOID, URINE NEGATIVE (NEG <=50); COCAINE, URINE NEGATIVE (NEG <=150); METHAMPHETAMINES SCREEN,URINE NEGATIVE (NEG <=500); OPIATE, URINE NEGATIVE (NEG <=100); PHENCYCLIDINE SCREEN,URINE NEGATIVE (NEG <=25); UR TRICYCLIC ANTIDEPRESSANTS NEGATIVE (NEG <=300); URINE AMPHETAMINE NEGATIVE (NEG <=500); URINE METHADONE NEGATIVE (NEG <=200); URINE OXYCODONE SCREEN NEGATIVE (NEG <=100); URINE PROPOXYPHENE SCREEN NEGATIVE (NEG <=300)
--- NOTE | 2021-08-24 21:00 | NUR ---
SENSITIZER CHASE MADE AWARE OF NON REPORTED RIGHT SHOULDER DISLOCATION.
[2021-08-24 21:07] LABS: BACTERIA,URINE FEW /HPF (None Seen); RBC,URINE 20-50 /HPF (0-3); WBC,URINE 0-3 /HPF (0-3)
[2021-08-24] MEDS ORDERED: VANCOMYCIN HCL 1000 MG/VIAL IV ONE (21:58)
--- NOTE | 2021-08-24 22:22 | NUR ---
CONSULT CALLED FOR DR. SALOMÓN VERA I SPOKE TO ROBERT CAMRYN REASON FOR CONSULT:UTI REQUESTING CONSULT: DR. FINK ROCK MASON PHONE NUMBER: [phone]
[2021-08-24] MEDS: D5/0.45 NS 1,000 ML IV SCH (22:30)
[2021-08-24 22:54] VITALS: BP_SYST 136
--- NOTE | 2021-08-24 23:00 | NUR ---
PT ADMITTED TO [facility]. PT AOX2 ABLE TO COMMUNICATE BUT HAS SOME CONFUSION. RR EVEN AND UNLABORED ON RA. LUNG SOUNDS CLEAR. PULSES PRESENT. PT HAS ERYTHEMA TO THE R SIDE OF HIS FACE, BLISTER ON R SIDE OF HIS CHEST INTACT, BLISTER ON L SIDE OF CHEST NON INTACT, DISCOLORATION ON R LEG. PICTURES TAKEN. PT C/O DIFFICULTY OPENING EYES DUE TO MUCUS ON THEM. BOTH EYE CLEANED. PT EDUCATED TO USE CALL LIGHT IF HE NEEDS ASSISTANCE. BED ALARM ON. CALL LIGHT WITHIN REACH. ALL NEEDS MEET AT THIS TIME. Addendum: 08/25/21 at 0306 by Frank Jacobs RN PT ALSO HAS WHAT APPEARS TO BE R SHOULDER DISLOCATION. PT C/O PAIN WHEN MOVED
[2021-08-25] VITALS: BP_SYST 136
[2021-08-25 08:06] VITALS: BP_SYST 132
[2021-08-25 08:27] LABS: ALANINE AMINOTRANSFERASE 35 U/L (12-78); ALBUMIN 2.9 g/dL (3.4-4.8); ANION GAP 12 (5-15); ASPARTATE AMINOTRANSFERASE 62 U/L (10-37); CALCIUM 8.1 mg/dL (8.4-11.0); CHLORIDE 109 mmol/L (98-107); CREATININE 0.64 mg/dL (0.55-1.30); GLUCOSE 103 mg/dL (70-99); POTASSIUM 3.9 mmol/L (3.5-5.1); SODIUM SERUM 144 mmol/L (136-145); TOTAL BILIRUBIN 1.5 mg/dL (0.0-1.0); UREA NITROGEN, BLOOD 24 mg/dL (8-21)
[2021-08-25 08:53] LABS: BASOPHILS % (AUTO) 0.4 % (0.0-2.0); EOSINOPHILS # (AUTO) 0.4 K/uL (0.0-0.4); EOSINOPHILS % (AUTO) 5.4 % (0.0-4.0); HEMATOCRIT 48.3 % (36-54); LYMPHOCYTES # (AUTO) 0.8 K/uL (1.0-5.5); LYMPHOCYTES % (AUTO) 10.5 % (20.5-51.5); MEAN CORPUSCULAR HEMOGLOBIN 30 pg (27-31); MEAN CORPUSCULAR HGB CONC 33 % (32-36); MEAN CORPUSCULAR VOLUME 91 fL (79.0-98.0); MONOCYTES # (AUTO) 0.5 K/uL (0.0-1.0); MONOCYTES % (AUTO) 6.4 % (1.7-9.3); NEUTROPHILS # (AUTO) 5.9 K/uL (1.8-7.7); NEUTROPHILS % (AUTO) 77.3 % (40.0-70.0); PLATELET COUNT (AUTO) 104 K/uL (130-430); RED BLOOD CELL COUNT(AUTO) 5.33 MIL/uL (4.2-6.2); RED CELL DISTRIBUTION WIDTH 14.7 % (9.0-15.0); WHITE BLOOD COUNT (AUTO) 7.7 K/uL (4.8-10.8)
[2021-08-25] MEDS: D5/0.45 NS 1,000 ML IV SCH ×2 (14:45→22:20)
[2021-08-25 16:18] VITALS: BP_SYST 155
--- NOTE | 2021-08-25 19:05 | NUR ---
RECEIVED BEDSIDE REPORT. PT IN BED RESTING. PT MORE ALERT TODAY THEN FROM NIGHT BEFORE. CALL LIGHT WITHIN REACH. BED ALARM ON. BED RAILS UPX2. ALL NEEDS MEET AT THIS TIME.
[2021-08-25 22:00] VITALS: BP_SYST 138
--- NOTE | 2021-08-26 00:05 | NUR ---
PT ABLE TO CALL OUT FOR HELP WHEN HE NEEDS TO USE URINAL. PT REPOSITIONED. OPTIFOAM ON SACRUM FOR EXTRA PADDING. PT DENIES PAIN AT THIS TIME. WILL CONTINUE TO MONITOR.
[2021-08-26 04:00] VITALS: BP_SYST 139
[2021-08-26 07:39] VITALS: BP_SYST 132
[2021-08-26] MEDS: SODIUM CHLORIDE 5% EYE DROPS 15 ML OP PRN ×3 (08:46→21:30)
--- NOTE | 2021-08-26 15:01 | NUR ---
Dietitian Recommendations * CCHO, cardiac diet * Encourage increase PO intakes LP, RD Please refer to Nutrition Assessment for details. Addendum: 08/26/21 at [address] Amended: Links added.
--- NOTE | 2021-08-26 16:02 | NUR ---
INFORMED RN ADAN THAT THE PATIENT'S BATTERY IS ON THE TELE MONITOR
[2021-08-26 18:36] VITALS: BP_SYST 139
--- NOTE | 2021-08-26 19:20 | NUR ---
RECEIVED REPORT ON PATIENT FROM ONEIDA, ASSUMED CARE, AND STARTED ASSESSMENT.
[2021-08-26 20:00] VITALS: BP_SYST 128
[2021-08-27 00:33] VITALS: BP_SYST 132
[2021-08-27 06:46] LABS: BASOPHILS % (AUTO) 0.5 % (0.0-2.0); EOSINOPHILS # (AUTO) 0.6 K/uL (0.0-0.4); HEMATOCRIT 42.3 % (36-54); HEMOGLOBIN 14.3 g/dL (14.0-18.0); LYMPHOCYTES # (AUTO) 0.8 K/uL (1.0-5.5); LYMPHOCYTES % (AUTO) 20.7 % (20.5-51.5); MEAN CORPUSCULAR HEMOGLOBIN 30 pg (27-31); MEAN CORPUSCULAR HGB CONC 34 % (32-36); MEAN CORPUSCULAR VOLUME 88 fL (79.0-98.0); MONOCYTES # (AUTO) 0.2 K/uL (0.0-1.0); MONOCYTES % (AUTO) 5.5 % (1.7-9.3); NEUTROPHILS # (AUTO) 2.2 K/uL (1.8-7.7); NEUTROPHILS % (AUTO) 58.3 % (40.0-70.0); PLATELET COUNT (AUTO) 100 K/uL (130-430); RED BLOOD CELL COUNT(AUTO) 4.79 MIL/uL (4.2-6.2); RED CELL DISTRIBUTION WIDTH 14.1 % (9.0-15.0); WHITE BLOOD COUNT (AUTO) 3.7 K/uL (4.8-10.8)
[2021-08-27 08:00] VITALS: BP_SYST 134
[2021-08-27 08:09] LABS: ANION GAP 7 (5-15); CALCIUM 8.2 mg/dL (8.4-11.0); CHLORIDE 105 mmol/L (98-107); CREATININE 0.67 mg/dL (0.55-1.30); GLUCOSE 93 mg/dL (70-99); POTASSIUM 3.2 mmol/L (3.5-5.1); SODIUM SERUM 137 mmol/L (136-145); UREA NITROGEN, BLOOD 13 mg/dL (8-21)
--- NOTE | 2021-08-27 12:49 | NUR ---
CONSULTATION PAGED/CALLED Reason for Consultation: []possible right shoulder injury Person Who was Notified: []Malena Consulting Physician: [] Dr. Lancaster P Chicken Cutter Specialty: []Ortho Ordering Physician: []Dr. Nieves
[2021-08-27 12:50] VITALS: BP_SYST 124
--- NOTE | 2021-08-27 14:01 | NUR ---
PATIENT WAS SEEN FOR EVALUATION EARLIER TODAY. THE RIGHT SHOULDER WAS MAINTAINED IN AN IMMOBILIZED POSITION AND NWB. PATIENT IS PENDING ORTHO CONSULT. HE WAS GIVEN A SHOULDER IMMOBILIZER WHILE IN THE ER.
[2021-08-27 16:27] VITALS: BP_SYST 124
[2021-08-27] MEDS: D5/0.45 NS 1,000 ML IV SCH (19:00)
--- NOTE | 2021-08-27 19:15 | NUR ---
iv in r arm infiltrated. r arm is red. both ivs removed. new iv inserted in L hand 22g. iv fluids restarted
[2021-08-27 20:00] VITALS: BP_SYST 118
[2021-08-28 01:02] VITALS: BP_SYST 149
[2021-08-28] MEDS: D5/0.45 NS 1,000 ML IV SCH ×2 (02:45→22:58)
--- NOTE | 2021-08-28 07:40 | NUR ---
OPEN NOTE Patient in bed resting. No pain noted no signs of distress or shortness of breath. Patient noted to have IV to left hand 22 gauge. Patent and infusing at this moment. Patient Awake and alert x 3 speaks faroese. All needs met and safety checks in place. Will continue to monitor.
[2021-08-28 08:07] VITALS: BP_SYST 156
[2021-08-28] MEDS ORDERED: DOCUSATE SODIUM 100 MG CAPSULE PO ONE (10:00)
[2021-08-28] MEDS ORDERED: FUROSEMIDE 20 MG TABLET PO ONE (10:00)
[2021-08-28] MEDS ORDERED: RIFAXIMIN 550 MG TABLET PO ONE (10:00)
[2021-08-28] MEDS ORDERED: LACTULOSE 20 GM/30 ML UDC PO ONE (10:00)
[2021-08-28] MEDS ORDERED: POTASSIUM CHLORIDE 20 MEQ TAB.PRT.SR PO ONE (10:00)
--- NOTE | 2021-08-28 12:10 | NUR ---
PATIENT ROUNDS Patient resting comfortably. No signs of distress noted. No shortness of breath, no pain. Patient's has IV patent and infusing to IV pump. All needs met, safety checks in place. Will continue to monitor.
[2021-08-28 12:51] VITALS: BP_SYST 150
--- NOTE | 2021-08-28 14:20 | NUR ---
DISCHARGE PLANNING Order for SNF. Spoke with pt at bedside, & discussed dc planning. States wants to see ortho before makes decision for SNF. States that was limited with PT due to Rt shoulder. States ok to send out referrals to SNF's. Informed has choices, states has no not been to SNF & has no preference. States [facility] ok or any contracted with [facility] insurance.
[2021-08-28 16:00] VITALS: BP_SYST 153
[2021-08-28] MEDS: amLODIPine BESYLATE 10 MG TABLET PO SCH (17:12)
--- NOTE | 2021-08-28 18:50 | NUR ---
CLOSING NOTE Patient resting in bed. No pain, shortness of breath or distress noted. IV site patent and no infiltration noted. Patient needs met throughout shift. Call light within reach and safety measures placed. Will endorse to administrative aide nurse.
--- NOTE | 2021-08-28 19:30 | NUR ---
HAND-OFF REPORT RECEIVED FROM MITUL LEGER. REPORTED PLAN IS TO POSSIBLY D.C TO [facility] TOM[facility]. LOOKING FOR A CENTER THAT SATISFIES CAREGIVER FAR DISTANCE. PT RECEIVED AOX4. DENIES PAIN. ASSIST WITH URINAL Q2 HOURS. NO SOB. CIRCULATION SENSATION AND MOVEMENT INTACT THOUGH LIMITED ROM IN RUE. FINGERTIPS PINK WARM AND JUSTIN WELL WITH CAP REFILL < 3SEC. IV SITE BENIGN. PROVIDE COMFORT MEASURES.CONT TO MONITOR. BED IN LOWEST POSITION WITH WHEELS LOCKED AND CALL LIGHT WITHIN EASY REACH.
[2021-08-28] MEDS: LACTULOSE 20 GM/30 ML UDC PO SCH (22:40)
[2021-08-28] MEDS: DOCUSATE SODIUM 100 MG CAPSULE PO SCH (22:40)
[2021-08-28] MEDS: FUROSEMIDE 20 MG TABLET PO SCH (22:48)
[2021-08-28] MEDS: RIFAXIMIN 550 MG TABLET PO SCH (22:48)
--- NOTE | 2021-08-29 | NUR ---
RESTING. NO CHANGES. CONT TO MONITOR AND ASSIST NEEDED.
[2021-08-29 00:55] VITALS: BP_SYST 130
[2021-08-29 04:00] VITALS: BP_SYST 136
--- NOTE | 2021-08-29 07:21 | NUR ---
PHYSICAL THERAPY CO-SIGN The Physical Therapy Progress Notes documented by Multimedia Production Assistant have been reviewed. Reviewed/Co-Signed by: Florentin Ann Documentation Done by: KHANG BONILLA PTA Addendum: 08/29/21 at 0721 by Florentin Ann PT Amended: Links added.
--- NOTE | 2021-08-29 07:30 | NUR ---
HAND-OFF REPORT TO ONCOMING RN. CAROL BS 89. ENDORSED POSS. D/C TO SNF TODAY. RELINQUISHED CARE OF PT AT THIS TIME.
--- NOTE | 2021-08-29 08:57 | NUR ---
REMINDED ORTHO CONSULT WITH DR Candida YOUSIF RE: R SHOULDER INJURY. SPOKE TO JAMIE.
[2021-08-29] MEDS ORDERED: GABAPENTIN 300 MG CAPSULE PO SCH (09:00)
[2021-08-29] MEDS: LACTULOSE 20 GM/30 ML UDC PO SCH ×2 (09:00→22:33)
[2021-08-29] MEDS: POTASSIUM CHLORIDE 20 MEQ TAB.PRT.SR PO SCH (09:37)
[2021-08-29] MEDS: DOCUSATE SODIUM 100 MG CAPSULE PO SCH ×2 (09:38→22:11)
[2021-08-29] MEDS: RIFAXIMIN 550 MG TABLET PO SCH ×2 (09:38→22:10)
[2021-08-29] MEDS: FUROSEMIDE 20 MG TABLET PO SCH ×2 (09:39→22:10)
--- NOTE | 2021-08-29 11:31 | NUR ---
Discharge Planning: DCP faxed to [facility] [phone] DCP to follow up Addendum: 08/29/21 at 1544 by Arina ROLDAN DCP spoke to Sharon at [facility] [phone] reviewing referral. DCP to follow up.
[2021-08-29 16:00] VITALS: BP_SYST 105
[2021-08-29] MEDS: amLODIPine BESYLATE 10 MG TABLET PO SCH (18:00)
[2021-08-29] MEDS: D5/0.45 NS 1,000 ML IV SCH ×2 (19:02→22:13)
[2021-08-29 20:00] VITALS: BP_SYST 130
[2021-08-29] MEDS: MENTHOL TP SCH (22:11)
[2021-08-29] MEDS: METHYL SALICYLATE TP SCH (22:11)
[2021-08-29] MEDS: CAMPHOR TP SCH (22:11)
[2021-08-30 02:00] VITALS: BP_SYST 110
--- NOTE | 2021-08-30 07:37 | NUR ---
OPENING NOTE: REPORT RC'VD FROM OUTGOING NOC RN, ALL CARES ASSUMED.
[2021-08-30 08:00] VITALS: BP_SYST 131
[2021-08-30] MEDS: CAMPHOR TP SCH ×2 (08:45→21:00)
[2021-08-30] MEDS: DOCUSATE SODIUM 100 MG CAPSULE PO SCH ×2 (08:45→22:08)
[2021-08-30] MEDS: POTASSIUM CHLORIDE 20 MEQ TAB.PRT.SR PO SCH (08:45)
[2021-08-30] MEDS: FUROSEMIDE 20 MG TABLET PO SCH ×2 (08:45→22:07)
[2021-08-30] MEDS: LACTULOSE 20 GM/30 ML UDC PO SCH ×2 (08:45→22:08)
[2021-08-30] MEDS: MENTHOL TP SCH ×2 (08:45→21:00)
[2021-08-30] MEDS: METHYL SALICYLATE TP SCH ×2 (08:45→21:00)
[2021-08-30] MEDS: RIFAXIMIN 550 MG TABLET PO SCH ×2 (08:45→22:01)
--- NOTE | 2021-08-30 10:00 | NUR ---
PRIMARY MD MAKING ROUNDS, BEDSIDE REPORT GIVEN AND ALL QUESTIONS ANSWERED. MD TO REVIEW CHART AND PLACE ORDERS.
[2021-08-30 10:38] LABS: BASOPHILS % (AUTO) 0.8 % (0.0-2.0); EOSINOPHILS # (AUTO) 0.6 K/uL (0.0-0.4); EOSINOPHILS % (AUTO) 13.6 % (0.0-4.0); HEMATOCRIT 43.9 % (36-54); HEMOGLOBIN 14.9 g/dL (14.0-18.0); LYMPHOCYTES # (AUTO) 0.9 K/uL (1.0-5.5); LYMPHOCYTES % (AUTO) 18.6 % (20.5-51.5); MEAN CORPUSCULAR HEMOGLOBIN 30 pg (27-31); MEAN CORPUSCULAR HGB CONC 34 % (32-36); MEAN CORPUSCULAR VOLUME 87 fL (79.0-98.0); MONOCYTES # (AUTO) 0.4 K/uL (0.0-1.0); MONOCYTES % (AUTO) 8.7 % (1.7-9.3); NEUTROPHILS # (AUTO) 2.7 K/uL (1.8-7.7); NEUTROPHILS % (AUTO) 58.3 % (40.0-70.0); PLATELET COUNT (AUTO) 125 K/uL (130-430); RED BLOOD CELL COUNT(AUTO) 5.03 MIL/uL (4.2-6.2); RED CELL DISTRIBUTION WIDTH 13.9 % (9.0-15.0); WHITE BLOOD COUNT (AUTO) 4.6 K/uL (4.8-10.8)
[2021-08-30 11:28] LABS: ALANINE AMINOTRANSFERASE 32 U/L (12-78); ALBUMIN 2.9 g/dL (3.4-4.8); ANION GAP 7 (5-15); ASPARTATE AMINOTRANSFERASE 34 U/L (10-37); CALCIUM 8.6 mg/dL (8.4-11.0); CHLORIDE 101 mmol/L (98-107); CREATININE 0.84 mg/dL (0.55-1.30); GLUCOSE 105 mg/dL (70-99); POTASSIUM 3.3 mmol/L (3.5-5.1); SODIUM SERUM 135 mmol/L (136-145); TOTAL BILIRUBIN 1.2 mg/dL (0.0-1.0); UREA NITROGEN, BLOOD 12 mg/dL (8-21)
[2021-08-30 12:00] VITALS: BP_SYST 129
--- NOTE | 2021-08-30 12:00 | NUR ---
LUNCH TRAY BROUGHT TO ROOM, PATIENT STATES " I AM NOT REALLY HUNGRY", KEFT TRAY AND ENCOURAGED PATIENT TO EAT MUCH HE FELT HE COULD.
--- NOTE | 2021-08-30 14:00 | NUR ---
RN ROUNDS REPOSITIONED WITH PILLOW SUPPORT, BED LOW AND LOCKED FOR SAFETY, CALL LIGHT IN REACH
--- NOTE | 2021-08-30 15:25 | NUR ---
CM: late entry: 1100am , lvm for Sharon at [facility], f/u acceptance and bed assignment and called again at 1520, per pbx there is no administration personnel on site and unable to contact them.
[2021-08-30 16:00] VITALS: BP_SYST 124
--- NOTE | 2021-08-30 16:00 | NUR ---
PATIENT REMAINS STABLE IN NO ACUTE DISTRESS AND OR DISCOMFORT. DENIES PAIN, BED LOW AND LOCKED FOR SAFETY, CALL LIGHT IN REACH.
--- NOTE | 2021-08-30 17:46 | NUR ---
ASSISTED PATIENT WITH URINAL, PATIENT NOTED WITH HAVING DIFFICULTY VOIDING, ENCOURAGED PO WATER INTAKE.
[2021-08-30] MEDS: amLODIPine BESYLATE 10 MG TABLET PO SCH (17:52)
[2021-08-31 00:39] VITALS: BP_SYST 117
[2021-08-31 08:00] VITALS: BP_SYST 97
[2021-08-31] MEDS: POTASSIUM CHLORIDE 20 MEQ TAB.PRT.SR PO SCH (08:38)
[2021-08-31] MEDS: FUROSEMIDE 20 MG TABLET PO SCH ×2 (08:38→20:56)
[2021-08-31] MEDS: RIFAXIMIN 550 MG TABLET PO SCH ×2 (08:38→20:56)
[2021-08-31] MEDS: LACTULOSE 20 GM/30 ML UDC PO SCH ×2 (08:39→20:56)
[2021-08-31] MEDS: MENTHOL TP SCH ×2 (08:39→20:59)
[2021-08-31] MEDS: DOCUSATE SODIUM 100 MG CAPSULE PO SCH ×2 (08:39→20:56)
[2021-08-31] MEDS: METHYL SALICYLATE TP SCH ×2 (08:39→20:59)
[2021-08-31] MEDS: CAMPHOR TP SCH ×2 (08:39→20:59)
[2021-08-31] MEDS: D5/0.45 NS 1,000 ML IV SCH (10:45)
[2021-08-31 12:00] VITALS: BP_SYST 101
[2021-08-31 16:29] VITALS: BP_SYST 105
[2021-08-31] MEDS: amLODIPine BESYLATE 10 MG TABLET PO SCH (17:04)
[2021-08-31 20:00] VITALS: BP_SYST 104
[2021-09-01 00:55] VITALS: BP_SYST 115
[2021-09-01] MEDS: D5/0.45 NS 1,000 ML IV SCH (06:45)
--- NOTE | 2021-09-01 08:00 | NUR ---
Mr Carr has been assessed as indicated. Josue has been noted to be both pleasant and cooperative and is resting quietly at this time
[2021-09-01] MEDS: METHYL SALICYLATE TP SCH (09:00)
[2021-09-01] MEDS: CAMPHOR TP SCH (09:00)
[2021-09-01] MEDS: MENTHOL TP SCH (09:00)
[2021-09-01] MEDS: POTASSIUM CHLORIDE 20 MEQ TAB.PRT.SR PO SCH (10:18)
[2021-09-01] MEDS: DOCUSATE SODIUM 100 MG CAPSULE PO SCH (10:18)
[2021-09-01] MEDS: RIFAXIMIN 550 MG TABLET PO SCH (10:19)
[2021-09-01] MEDS: FUROSEMIDE 20 MG TABLET PO SCH (10:19)
[2021-09-01] MEDS: LACTULOSE 20 GM/30 ML UDC PO SCH (10:20)
--- NOTE | 2021-09-01 11:42 | NUR ---
Discharge Planning: DCP arranged transport with [facility] [phone] to [facility] [phone] Rm 142. DCP made CM and nurse aware, patient packet taken to nurse station. Addendum: 09/01/21 at 1147 by Arina Kumar DP [facility] [phone] 2:00pm to [facility] [phone]
--- NOTE | 2021-09-01 11:52 | NUR ---
DISCHARGE PLANNING Per Dc meeting planner pt was accepted & has room today at [facility]. Spoke with pt at bedside & his caregiver Alena on speaker phone. Both agree with dc to SNF today. Per Alena pt has been at [facility] in past & that is there preference. Per Alena she will orange picking supervisor pt and take him to chemo from [facility]. Per pt call Alena for any dc planning or any updates. Called & spoke with Dr Nieves, gave ph order for dc to snf. Called & informed caregiver Alena Braden, ph [phone], orange picking supervisor for 1400.
[2021-09-01 12:58] VITALS: BP_SYST 100; BP_SYST 91
--- NOTE | 2021-09-01 14:30 | NUR ---
Mr Carr has been DC [facility]. He did not have IV access. Report was called to Makayla. documents that were not included in dc were faxed to Jessica at [phone]. Mr Carr was transported by [facility] unit 105 with Saad Tineo. At the time time of DC Mr Carr was compliant with the plan to DC and had no s/s of distress or discomfort. A message was left for his sister (Alena Braden [phone]) to contact us. His nephew Pravin Jimeenz [phone] was notified of the transfer he stated that Mr. Carr's sister was at the receiving facility awaiting his arrival
[2021-09-01 15:02] VITALS: BP_SYST 100
--- NOTE | 2021-09-01 18:12 | NUR ---
PHYSICAL THERAPY CO-SIGN The Physical Therapy Progress Notes documented by Wire Brush Operator have been reviewed. Reviewed/Co-Signed by: Florentin Ann Documentation Done by: KHANG BONILLA PTA Addendum: 09/01/21 at 1813 by Florentin Ann PT Amended: Links added.
--- NOTE | 2021-09-01 18:13 | NUR ---
PHYSICAL THERAPY CO-SIGN The Physical Therapy Progress Notes documented by Barbed Wire Machine Operator have been reviewed. Reviewed/Co-Signed by: Florentin Ann Documentation Done by: KHANG BONILLA PTA Addendum: 09/01/21 at 1813 by Florentin Ann PT Amended: Links added.
== END 2021-09-01 14:30 | DRG 690 ==
LOC: SED 12:26 → STU 18:31 → SMU 08-29 15:26
PROVIDERS: ADMIT Internal Medicine; ATTEND Internal Medicine
DX: N39.0 Urinary tract infection, site not specified (principal); G45.9 Transient cerebral ischemic attack, unspecified; I69.351 Hemiplegia and hemiparesis following cerebral infarction affecting right dominant side; E44.0 Moderate protein-calorie malnutrition; R64 Cachexia; R53.1 Weakness; Z20.822 Contact with and (suspected) exposure to COVID-19; E78.5 Hyperlipidemia, unspecified; E11.9 Type 2 diabetes mellitus without complications; I10 Essential (primary) hypertension; R41.82 Altered mental status, unspecified; R55 Syncope and collapse; R82.71 Bacteriuria; D69.6 Thrombocytopenia, unspecified; M75.91 Shoulder lesion, unspecified, right shoulder; Z85.05 Personal history of malignant neoplasm of liver; Z86.718 Personal history of other venous thrombosis and embolism; Z88.0 Allergy status to penicillin
CPT/HCPCS: 36415; 70450-TC; 71045; 73030; 76376; 80048; 80053; 80307; 81000; 82140; 82550; 82553; 82962; 83605; 83690; 84484; 85025; 87040; 93005; 96361; 96365; 97116-GP; 97163-GP; 97530-GP; 99285; G0378; G0482; J0692; J1956; J3370; J7030; Q9967

== ENCOUNTER 2021-11-06 09:41 | Inpatient (IN) | payer OTHER ==
[~2021-11-06] VITALS: Ht 162.6 cm; Wt 74.8 kg
[~2021-11-06 09:41] MED LIST changes: +BETA15OI3; -TRAM-350 PO
[2021-11-06 09:45] VITALS: BP_SYST 143
[2021-11-06] MEDS ORDERED: NACL 0.9% 1,000 ML IV ONE ×2 (10:30→12:30)
[2021-11-06] MEDS ORDERED: fentaNYL CITRATE/PF 100 MCG/2 ML AMP IVP ONE (10:30)
[2021-11-06 10:45] LABS: BASOPHILS % (AUTO) 0.9 % (0.0-2.0); EOSINOPHILS % (AUTO) 2.4 % (0.0-4.0); HEMATOCRIT 42.6 % (36-54); LYMPHOCYTES # (AUTO) 0.4 K/uL (1.0-5.5); LYMPHOCYTES % (AUTO) 21.4 % (20.5-51.5); MEAN CORPUSCULAR VOLUME 88 fL (79.0-98.0); MONOCYTES # (AUTO) 0.1 K/uL (0.0-1.0); MONOCYTES % (AUTO) 4.7 % (1.7-9.3); NEUTROPHILS # (AUTO) 1.4 K/uL (1.8-7.7); NEUTROPHILS % (AUTO) 70.6 % (40.0-70.0); PLATELET COUNT (AUTO) 86 K/uL (130-430); RED BLOOD CELL COUNT(AUTO) 4.82 MIL/uL (4.2-6.2); RED CELL DISTRIBUTION WIDTH 17.2 % (9.0-15.0)
[2021-11-06 10:56] LABS: ANION GAP 8 (5-15); CALCIUM 9.4 mg/dL (8.4-11.0); CHLORIDE 98 mmol/L (98-107); CREATININE 0.96 mg/dL (0.55-1.30); GLUCOSE 113 mg/dL (70-99); POTASSIUM 4.2 mmol/L (3.5-5.1); UREA NITROGEN, BLOOD 16 mg/dL (8-21)
[2021-11-06 11:12] LABS: ALANINE AMINOTRANSFERASE 116 U/L (12-78); ASPARTATE AMINOTRANSFERASE 327 U/L (10-37); TOTAL BILIRUBIN 12.3 mg/dL (0.0-1.0)
[2021-11-06 11:48] LABS: CKMB RELATIVE INDEX 0.2 (0.0-2.9); CREATINE KINASE MB 13.9 ng/mL (0-3.6)
[2021-11-06] MEDS ORDERED: DOCUSATE SODIUM 100 MG CAPSULE PO PRN (14:30)
[2021-11-06] MEDS ORDERED: MAGNESIUM SULFATE 50 ML IV PRN (14:30)
[2021-11-06] MEDS ORDERED: MORPHINE 2 MG/ML INJ. SYRINGE IVP PRN ×2 (14:30)
[2021-11-06] MEDS ORDERED: ACETAMINOPHEN 325 MG TABLET PO PRN ×2 (14:30→14:45)
[2021-11-06] MEDS ORDERED: ONDANSETRON HCL 4 MG/2 ML VIAL IVP PRN (14:30)
[2021-11-06] MEDS ORDERED: MUPIROCIN 2% TOPICAL OINTMENT 22 GM NS PRN (14:30)
[2021-11-06] MEDS ORDERED: LORazepam 2 MG/ML VIAL IVP PRN (14:30)
[2021-11-06] MEDS: NACL 0.9% 1,000 ML IV SCH (17:55)
[2021-11-06] MEDS: amLODIPine BESYLATE 10 MG TABLET PO SCH (17:58)
[2021-11-06 17:59] VITALS: BP_SYST 126
[2021-11-06 20:00] VITALS: BP_SYST 121
[2021-11-06] MEDS: DOCUSATE SODIUM 100 MG CAPSULE PO SCH (21:23)
[2021-11-06] MEDS: GABAPENTIN 300 MG CAPSULE PO SCH (21:23)
[2021-11-06] MEDS: RIFAXIMIN 550 MG TABLET PO SCH (21:23)
[2021-11-06] MEDS: LACTULOSE 20 GM/30 ML UDC PO SCH (21:23)
[2021-11-06] MEDS: FUROSEMIDE 20 MG TABLET PO SCH (21:24)
[2021-11-07] VITALS: BP_SYST 117
[2021-11-07] MEDS: NACL 0.9% 1,000 ML IV SCH ×2 (00:45→11:31)
[2021-11-07 07:28] LABS: ANION GAP 6 (5-15); CHLORIDE 104 mmol/L (98-107); CREATININE 0.83 mg/dL (0.55-1.30); GLUCOSE 97 mg/dL (70-99); UREA NITROGEN, BLOOD 13 mg/dL (8-21)
[2021-11-07 08:00] VITALS: BP_SYST 111
[2021-11-07 08:26] LABS: BASOPHILS % (AUTO) 1.6 % (0.0-2.0); EOSINOPHILS # (AUTO) 0.1 K/uL (0.0-0.4); EOSINOPHILS % (AUTO) 3.6 % (0.0-4.0); HEMATOCRIT 37.3 % (36-54); LYMPHOCYTES # (AUTO) 0.4 K/uL (1.0-5.5); LYMPHOCYTES % (AUTO) 24.3 % (20.5-51.5); MEAN CORPUSCULAR VOLUME 89 fL (79.0-98.0); MONOCYTES # (AUTO) 0.1 K/uL (0.0-1.0); MONOCYTES % (AUTO) 8.1 % (1.7-9.3); NEUTROPHILS # (AUTO) 1.1 K/uL (1.8-7.7); NEUTROPHILS % (AUTO) 62.4 % (40.0-70.0); PLATELET COUNT (AUTO) 69 K/uL (130-430); RED CELL DISTRIBUTION WIDTH 17.1 % (9.0-15.0)
[2021-11-07] MEDS: FUROSEMIDE 20 MG TABLET PO SCH ×2 (09:26→21:05)
[2021-11-07] MEDS: LACTULOSE 20 GM/30 ML UDC PO SCH ×2 (09:26→21:04)
[2021-11-07] MEDS: RIFAXIMIN 550 MG TABLET PO SCH ×2 (09:26→21:03)
[2021-11-07] MEDS: GABAPENTIN 300 MG CAPSULE PO SCH ×3 (09:27→21:04)
[2021-11-07] MEDS: DOCUSATE SODIUM 100 MG CAPSULE PO SCH ×2 (09:27→21:03)
[2021-11-07] MEDS ORDERED: DIATR MEGLU/DIATRIZ SOD 30 ML SOLUTION PO ONE (09:35)
[2021-11-07 09:41] LABS: CKMB RELATIVE INDEX 0.1 (0.0-2.9); CREATINE KINASE MB 4.2 ng/mL (0-3.6)
[2021-11-07 11:31] VITALS: BP_SYST 117
[2021-11-07 12:29] LABS: WHITE BLOOD COUNT (AUTO) 1.7 K/uL (4.8-10.8)
[2021-11-07 15:38] LABS: BILIRUBIN,URINE 2+ (NEGATIVE); BLOOD, URINE 3+ (NEGATIVE); GLUCOSE,URINE NEGATIVE (NEGATIVE); KETONES,URINE NEGATIVE (NEGATIVE); NITRITE, URINE POSITIVE (NEGATIVE); PH,URINE 7.5 (5.0-8.0); PROTEIN URINE TRACE (NEGATIVE); UROBILINOGEN,URINE 0.2 (0.2-1.0)
[2021-11-07 15:43] LABS: CLARITY/URINE HAZY (CLEAR); COLOR,URINE AMBER (YELLOW); LEUKOCYTE ESTERASE ,URINE 1+ (NEGATIVE)
[2021-11-07 15:44] LABS: BACTERIA,URINE MODERATE /HPF (None Seen); MUCUS,URINE None Seen /LPF (None Seen)
[2021-11-07 16:00] VITALS: BP_SYST 132
[2021-11-07] MEDS: amLODIPine BESYLATE 10 MG TABLET PO SCH (18:13)
[2021-11-07 20:20] VITALS: BP_SYST 134
[2021-11-08 00:10] VITALS: BP_SYST 108
[2021-11-08] MEDS: NACL 0.9% 1,000 ML IV SCH ×2 (06:05→14:33)
[2021-11-08 07:54] VITALS: BP_SYST 118
[2021-11-08] MEDS: FUROSEMIDE 20 MG TABLET PO SCH ×2 (08:47→21:49)
[2021-11-08] MEDS: LACTULOSE 20 GM/30 ML UDC PO SCH ×2 (08:47→21:48)
[2021-11-08] MEDS: RIFAXIMIN 550 MG TABLET PO SCH ×2 (08:48→21:49)
[2021-11-08] MEDS: DOCUSATE SODIUM 100 MG CAPSULE PO SCH ×2 (08:48→21:49)
[2021-11-08] MEDS: GABAPENTIN 300 MG CAPSULE PO SCH ×3 (08:48→21:48)
[2021-11-08 10:09] LABS: INR 1.2 (0.80-1.20); PROTHROMBIN TIME 12.1 SECS (9.5-12.5)
[2021-11-08 12:10] LABS: ALANINE AMINOTRANSFERASE 116 U/L (12-78); ALBUMIN 2.4 g/dL (3.4-4.8); ANION GAP 11 (5-15); ASPARTATE AMINOTRANSFERASE 233 U/L (10-37); CALCIUM 7.8 mg/dL (8.4-11.0); CHLORIDE 98 mmol/L (98-107); CREATININE 0.84 mg/dL (0.55-1.30); GLUCOSE 121 mg/dL (70-99); TOTAL BILIRUBIN 9.7 mg/dL (0.0-1.0); UREA NITROGEN, BLOOD 11 mg/dL (8-21)
[2021-11-08 14:02] LABS: POTASSIUM 2.6 mmol/L (3.5-5.1)
[2021-11-08 14:08] LABS: ACETAMINOPHEN < 1 ug/mL (1-30); CKMB RELATIVE INDEX 0.1 (0.0-2.9); CREATINE KINASE MB 1.4 ng/mL (0-3.6)
[2021-11-08 14:23] LABS: BASOPHILS % (AUTO) 1.1 % (0.0-2.0); EOSINOPHILS % (AUTO) 0.6 % (0.0-4.0); HEMATOCRIT 36.6 % (36-54); LYMPHOCYTES # (AUTO) 0.5 K/uL (1.0-5.5); LYMPHOCYTES % (AUTO) 12.7 % (20.5-51.5); MEAN CORPUSCULAR VOLUME 87 fL (79.0-98.0); MONOCYTES # (AUTO) 0.2 K/uL (0.0-1.0); MONOCYTES % (AUTO) 5.4 % (1.7-9.3); NEUTROPHILS # (AUTO) 3.2 K/uL (1.8-7.7); NEUTROPHILS % (AUTO) 80.2 % (40.0-70.0); PLATELET COUNT (AUTO) 58 K/uL (130-430); RED CELL DISTRIBUTION WIDTH 17.2 % (9.0-15.0)
[2021-11-08] MEDS: POTASSIUM CHLORIDE 20 MEQ TAB.PRT.SR PO PRN (14:33)
[2021-11-08 15:21] LABS: TOTAL IRON BIND. CAPACITY 145 ug/dL (250-450)
[2021-11-08 15:38] VITALS: BP_SYST 134
[2021-11-08] MEDS ORDERED: KCL 20 mEq in 100 mL (PREMIX) 100 ML IV ONE (16:00)
[2021-11-08] MEDS: amLODIPine BESYLATE 10 MG TABLET PO SCH (17:33)
[2021-11-08 20:49] VITALS: BP_SYST 135
[2021-11-08 21:56] LABS: ANION GAP 9 (5-15); CALCIUM 8.1 mg/dL (8.4-11.0); CHLORIDE 99 mmol/L (98-107); CREATININE 0.98 mg/dL (0.55-1.30); GLUCOSE 118 mg/dL (70-99); UREA NITROGEN, BLOOD 13 mg/dL (8-21)
[2021-11-09] VITALS: BP_SYST 124
[2021-11-09] MEDS: NACL 0.9% 1,000 ML IV SCH ×2 (03:31→16:22)
[2021-11-09 08:00] VITALS: BP_SYST 101
[2021-11-09 08:06] LABS: ALPHA-1-ANTITRYPSIN, S 164 mg/dL (101-187)
[2021-11-09 10:07] LABS: HEPATITIS A AB, IgM Negative (Negative); HEPATITIS B CORE AB, IgM Negative (Negative); HEPATITIS B SURFACE AG Negative (Negative)
[2021-11-09] MEDS: LACTULOSE 20 GM/30 ML UDC PO SCH ×2 (10:21→22:50)
[2021-11-09] MEDS: FUROSEMIDE 20 MG TABLET PO SCH ×2 (10:21→22:51)
[2021-11-09] MEDS: DOCUSATE SODIUM 100 MG CAPSULE PO SCH ×2 (10:21→22:51)
[2021-11-09] MEDS: RIFAXIMIN 550 MG TABLET PO SCH ×2 (10:21→22:50)
[2021-11-09] MEDS: GABAPENTIN 300 MG CAPSULE PO SCH ×3 (10:21→22:51)
[2021-11-09 11:22] LABS: ALANINE AMINOTRANSFERASE 87 U/L (12-78); ALBUMIN 2.1 g/dL (3.4-4.8); ANION GAP 11 (5-15); ASPARTATE AMINOTRANSFERASE 136 U/L (10-37); CALCIUM 7.8 mg/dL (8.4-11.0); CHLORIDE 101 mmol/L (98-107); CREATININE 0.96 mg/dL (0.55-1.30); GLUCOSE 150 mg/dL (70-99); PHOSPHORUS 1.8 mg/dL (2.7-4.5); UREA NITROGEN, BLOOD 12 mg/dL (8-21)
[2021-11-09 11:46] VITALS: BP_SYST 116
[2021-11-09 15:39] VITALS: BP_SYST 126
[2021-11-09 15:55] LABS: BASOPHILS % (AUTO) 0.9 % (0.0-2.0); EOSINOPHILS % (AUTO) 0.3 % (0.0-4.0); HEMATOCRIT 35.8 % (36-54); LYMPHOCYTES # (AUTO) 0.5 K/uL (1.0-5.5); LYMPHOCYTES % (AUTO) 8.7 % (20.5-51.5); MEAN CORPUSCULAR VOLUME 89 fL (79.0-98.0); MONOCYTES # (AUTO) 0.2 K/uL (0.0-1.0); MONOCYTES % (AUTO) 3.3 % (1.7-9.3); NEUTROPHILS # (AUTO) 4.5 K/uL (1.8-7.7); NEUTROPHILS % (AUTO) 86.8 % (40.0-70.0); PLATELET COUNT (AUTO) 52 K/uL (130-430); RED BLOOD CELL COUNT(AUTO) 4.05 MIL/uL (4.2-6.2); RED CELL DISTRIBUTION WIDTH 16.9 % (9.0-15.0); WHITE BLOOD COUNT (AUTO) 5.2 K/uL (4.8-10.8)
[2021-11-09] MEDS: amLODIPine BESYLATE 10 MG TABLET PO SCH (17:30)
[2021-11-09 20:00] VITALS: BP_SYST 122
[2021-11-09] MEDS: INSULIN REGULAR, HUMAN 100 UNITS/ML, 3 ML VIAL (humuLIN R) SUBCUT PRN (23:03)
[2021-11-10] VITALS: BP_SYST 125
[2021-11-10] MEDS: POTASSIUM CHLORIDE 20 MEQ TAB.PRT.SR PO PRN (05:20)
[2021-11-10] MEDS: NACL 0.9% 1,000 ML IV SCH (06:26)
[2021-11-10 07:19] LABS: ANION GAP 13 (5-15); CALCIUM 7.9 mg/dL (8.4-11.0); CHLORIDE 101 mmol/L (98-107); CREATININE 0.88 mg/dL (0.55-1.30); GLUCOSE 118 mg/dL (70-99); POTASSIUM 3.1 mmol/L (3.5-5.1); UREA NITROGEN, BLOOD 13 mg/dL (8-21)
[2021-11-10 07:31] LABS: BASOPHILS % (AUTO) 0.5 % (0.0-2.0); EOSINOPHILS # (AUTO) 0.2 K/uL (0.0-0.4); EOSINOPHILS % (AUTO) 5.1 % (0.0-4.0); HEMATOCRIT 34.6 % (36-54); LYMPHOCYTES # (AUTO) 0.4 K/uL (1.0-5.5); LYMPHOCYTES % (AUTO) 9.4 % (20.5-51.5); MEAN CORPUSCULAR VOLUME 87 fL (79.0-98.0); MONOCYTES # (AUTO) 0.2 K/uL (0.0-1.0); MONOCYTES % (AUTO) 3.8 % (1.7-9.3); NEUTROPHILS # (AUTO) 3.3 K/uL (1.8-7.7); NEUTROPHILS % (AUTO) 81.2 % (40.0-70.0); PLATELET COUNT (AUTO) 57 K/uL (130-430); RED BLOOD CELL COUNT(AUTO) 3.98 MIL/uL (4.2-6.2); RED CELL DISTRIBUTION WIDTH 17.3 % (9.0-15.0); WHITE BLOOD COUNT (AUTO) 4.1 K/uL (4.8-10.8)
[2021-11-10] MEDS ORDERED: SULF1TAB48 PO (07:46)
[2021-11-10] MEDS ORDERED: cefTRIAXone 1 GM in D5W 50 ML IV SCH (09:00)
[2021-11-10 09:06] LABS: ANTI NUCLEAR AB WITH REFLEX Negative (Negative)
[2021-11-10] MEDS: DOCUSATE SODIUM 100 MG CAPSULE PO SCH (09:31)
[2021-11-10] MEDS: FUROSEMIDE 20 MG TABLET PO SCH (09:32)
[2021-11-10] MEDS: RIFAXIMIN 550 MG TABLET PO SCH (09:32)
[2021-11-10] MEDS: GABAPENTIN 300 MG CAPSULE PO SCH (09:32)
[2021-11-10] MEDS: LACTULOSE 20 GM/30 ML UDC PO SCH (09:32)
[2021-11-10 12:47] VITALS: BP_SYST 107
[2021-11-10] MEDS: INSULIN REGULAR, HUMAN 100 UNITS/ML, 3 ML VIAL (humuLIN R) SUBCUT PRN (13:43)
[2021-11-10 14:16] VITALS: BP_SYST 97
[2021-11-16 10:06] LABS: ANTI-SMOOTH MUSCLE AB 5 Units (0-19)
[2021-11-18 08:50] LABS: FERRITIN 619 ng/mL (30-400)
== END 2021-11-10 14:38 | disposition home health service (06) | DRG 558 ==
LOC: SED 09:41 → STU 14:27 → SMU 11-09 09:38
PROVIDERS: ADMIT Family Medicine; ATTEND Family Medicine
DX: M62.82 Rhabdomyolysis (principal); E87.1 Hypo-osmolality and hyponatremia; N39.0 Urinary tract infection, site not specified; E44.0 Moderate protein-calorie malnutrition; D69.6 Thrombocytopenia, unspecified; D72.819 Decreased white blood cell count, unspecified; E11.9 Type 2 diabetes mellitus without complications; E78.5 Hyperlipidemia, unspecified; I10 Essential (primary) hypertension; I25.10 Atherosclerotic heart disease of native coronary artery without angina pectoris; Z20.822 Contact with and (suspected) exposure to COVID-19; Z85.05 Personal history of malignant neoplasm of liver; Z86.718 Personal history of other venous thrombosis and embolism; Z86.73 Personal history of transient ischemic attack (TIA), and cerebral infarction without residual deficits; Z88.0 Allergy status to penicillin; Z92.21 Personal history of antineoplastic chemotherapy; Z68.28 Body mass index [BMI] 28.0-28.9, adult
CPT/HCPCS: 36415; 71045; 76376; 76700-TC; 80048; 80053; 80074; 81000; 82103; 82105; 82140; 82550; 82553; 82728; 82962; 82977; 83516; 83540; 83550; 83605; 83735; 84100; 85025; 85610-TC; 85730-TC; 86038; 87040; 96374; 97116-GP; 97530-GP; 99285; G0378; G0480; J0696; J1815; J3010; J3480; J7060; Q9964; Q9967

== ENCOUNTER 2021-12-14 18:23 | Inpatient (IN) | payer OTHER ==
[~2021-12-14] VITALS: Ht 162.6 cm; Wt 73.9 kg
[~2021-12-14 18:23] MED LIST changes: +SULF1TAB48 PO
[2021-12-14 18:25] VITALS: BP_SYST 92
[2021-12-14] MEDS ORDERED: NACL 0.9% 1,000 ML IV ONE ×2 (20:00→22:00)
[2021-12-14 20:34] LABS: HEMATOCRIT 36.8 % (36-54); HEMOGLOBIN 12.9 g/dL (14.0-18.0); MEAN CORPUSCULAR HEMOGLOBIN 32 pg (27-31); MEAN CORPUSCULAR HGB CONC 35 % (32-36); MEAN CORPUSCULAR VOLUME 91 fL (79.0-98.0); PLATELET COUNT (AUTO) 170 K/uL (130-430); RED BLOOD CELL COUNT(AUTO) 4.03 MIL/uL (4.2-6.2); RED CELL DISTRIBUTION WIDTH 24.7 % (9.0-15.0); WHITE BLOOD COUNT (AUTO) 9.3 K/uL (4.8-10.8)
[2021-12-14 20:38] LABS: ANION GAP 8 (5-15); CALCIUM 7.6 mg/dL (8.4-11.0); CHLORIDE 101 mmol/L (98-107); CREATININE 1.45 mg/dL (0.55-1.30); GLUCOSE 132 mg/dL (70-99); UREA NITROGEN, BLOOD 36 mg/dL (8-21)
[2021-12-14 20:46] LABS: ALANINE AMINOTRANSFERASE 88 U/L (12-78); ALBUMIN 1.5 g/dL (3.4-4.8); ASPARTATE AMINOTRANSFERASE 154 U/L (10-37); LIPASE 98 U/L (73-393)
[2021-12-14 20:48] LABS: TOTAL BILIRUBIN 26.9 mg/dL (0.0-1.0)
[2021-12-14 20:52] LABS: BAND % (MANUAL) 1 % (0-6); BASOPHILS % (MANUAL) 0 % (0-2); EOSINOPHILS % (MANUAL) 1 % (0-7); LYMPHOCYTES % (MANUAL) 5 % (20-46); METAMYELOCYTES % 3 % (0-0); MONOCYTES % (MANUAL) 3 % (0-11); MYELOCYTES % 3 % (0-0)
[2021-12-14 21:06] LABS: BLOOD, URINE 3+ (NEGATIVE); CLARITY/URINE SL CLOUDY (CLEAR); GLUCOSE,URINE TRACE (NEGATIVE); KETONES,URINE NEGATIVE (NEGATIVE); LEUKOCYTE ESTERASE ,URINE 3+ (NEGATIVE); NITRITE, URINE NEGATIVE (NEGATIVE); PH,URINE 8.5 (5.0-8.0); PROTEIN URINE 2+ (NEGATIVE); UROBILINOGEN,URINE 0.2 (0.2-1.0)
[2021-12-14 21:13] LABS: BILIRUBIN,URINE 3+ (NEGATIVE); COLOR,URINE AMBER (YELLOW)
[2021-12-14 21:14] LABS: BACTERIA,URINE MANY /HPF (None Seen); MUCUS,URINE None Seen /LPF (None Seen); TRIPLE PHOSPHATE CRYSTAL,UR 0-10 /HPF (None Seen); WBC,URINE >100 /HPF (0-3)
[2021-12-14] MEDS ORDERED: LORazepam 2 MG/ML VIAL IVP PRN (22:15)
[2021-12-14] MEDS ORDERED: MAGNESIUM SULFATE 50 ML IV PRN (22:15)
[2021-12-14] MEDS ORDERED: MUPIROCIN 2% TOPICAL OINTMENT 22 GM NS PRN (22:15)
[2021-12-14] MEDS ORDERED: MORPHINE 2 MG/ML INJ. SYRINGE IVP PRN ×2 (22:15)
[2021-12-14] MEDS ORDERED: DOCUSATE SODIUM 100 MG CAPSULE PO PRN (22:15)
[2021-12-14] MEDS ORDERED: ONDANSETRON HCL 4 MG/2 ML VIAL IVP PRN (22:15)
[2021-12-15 00:45] VITALS: BP_SYST 108
[2021-12-15 07:21] LABS: BASOPHILS # (AUTO) 0.1 K/uL (0.0-0.2); BASOPHILS % (AUTO) 0.7 % (0.0-2.0); EOSINOPHILS # (AUTO) 0.3 K/uL (0.0-0.4); EOSINOPHILS % (AUTO) 3.6 % (0.0-4.0); HEMATOCRIT 34.8 % (36-54); HEMOGLOBIN 12.4 g/dL (14.0-18.0); LYMPHOCYTES # (AUTO) 0.4 K/uL (1.0-5.5); LYMPHOCYTES % (AUTO) 4.5 % (20.5-51.5); MEAN CORPUSCULAR HEMOGLOBIN 32 pg (27-31); MEAN CORPUSCULAR HGB CONC 36 % (32-36); MEAN CORPUSCULAR VOLUME 91 fL (79.0-98.0); MONOCYTES # (AUTO) 0.4 K/uL (0.0-1.0); NEUTROPHILS # (AUTO) 6.9 K/uL (1.8-7.7); PLATELET COUNT (AUTO) 142 K/uL (130-430); RED BLOOD CELL COUNT(AUTO) 3.84 MIL/uL (4.2-6.2); RED CELL DISTRIBUTION WIDTH 24.6 % (9.0-15.0)
[2021-12-15] MEDS: D5NS 1,000 ML IV SCH (08:30)
[2021-12-15] MEDS: LACTULOSE 20 GM/30 ML UDC PO SCH ×2 (08:33→22:41)
[2021-12-15] MEDS: DOCUSATE SODIUM 100 MG CAPSULE PO SCH ×2 (08:39→22:41)
[2021-12-15] MEDS: FUROSEMIDE 20 MG TABLET PO SCH ×2 (08:39→22:42)
[2021-12-15 08:53] LABS: NEUTROPHILS % (AUTO) 86.2 % (40.0-70.0)
[2021-12-15] MEDS ORDERED: RIFAXIMIN 550 MG TABLET PO SCH (09:00)
[2021-12-15] MEDS ORDERED: GABAPENTIN 300 MG CAPSULE PO SCH ×2 (09:00→15:21)
[2021-12-15 09:01] LABS: INR 2.6 (0.80-1.20); PROTHROMBIN TIME 25.9 SECS (9.5-12.5)
[2021-12-15 09:23] LABS: ANION GAP 14 (5-15); CALCIUM 8.8 mg/dL (8.4-11.0); CHLORIDE 101 mmol/L (98-107); CREATININE 1.32 mg/dL (0.55-1.30); GLUCOSE 82 mg/dL (70-99); UREA NITROGEN, BLOOD 31 mg/dL (8-21)
[2021-12-15] MEDS: RIFAXIMIN 550 MG TABLET PO SCH ×2 (10:37→22:41)
[2021-12-15 12:00] VITALS: BP_SYST 96
[2021-12-15] MEDS ORDERED: GABAPENTIN 300 MG CAPSULE PO ONE (15:21)
[2021-12-15 16:00] VITALS: BP_SYST 100
[2021-12-15] MEDS: amLODIPine BESYLATE 10 MG TABLET PO SCH (18:00)
[2021-12-15 19:00] VITALS: BP_SYST 110
[2021-12-15] MEDS: GABAPENTIN 300 MG CAPSULE PO SCH (22:45)
[2021-12-16 00:44] VITALS: BP_SYST 92
[2021-12-16 04:00] VITALS: BP_SYST 108
[2021-12-16] MEDS: D5NS 1,000 ML IV SCH (04:24)
[2021-12-16 07:17] LABS: BASOPHILS % (AUTO) 0.6 % (0.0-2.0); EOSINOPHILS # (AUTO) 0.5 K/uL (0.0-0.4); EOSINOPHILS % (AUTO) 6.7 % (0.0-4.0); HEMATOCRIT 32.9 % (36-54); HEMOGLOBIN 11.8 g/dL (14.0-18.0); LYMPHOCYTES # (AUTO) 0.3 K/uL (1.0-5.5); LYMPHOCYTES % (AUTO) 3.7 % (20.5-51.5); MEAN CORPUSCULAR HEMOGLOBIN 32 pg (27-31); MEAN CORPUSCULAR HGB CONC 36 % (32-36); MEAN CORPUSCULAR VOLUME 90 fL (79.0-98.0); MONOCYTES # (AUTO) 0.4 K/uL (0.0-1.0); MONOCYTES % (AUTO) 4.7 % (1.7-9.3); NEUTROPHILS # (AUTO) 6.3 K/uL (1.8-7.7); NEUTROPHILS % (AUTO) 84.3 % (40.0-70.0); PLATELET COUNT (AUTO) 135 K/uL (130-430); RED BLOOD CELL COUNT(AUTO) 3.66 MIL/uL (4.2-6.2); RED CELL DISTRIBUTION WIDTH 24.5 % (9.0-15.0); WHITE BLOOD COUNT (AUTO) 7.5 K/uL (4.8-10.8)
[2021-12-16 07:30] VITALS: BP_SYST 93
[2021-12-16 07:47] LABS: ALANINE AMINOTRANSFERASE 91 U/L (12-78); ALBUMIN 1.5 g/dL (3.4-4.8); ANION GAP 9 (5-15); ASPARTATE AMINOTRANSFERASE 164 U/L (10-37); BILIRUBIN,DIRECT 21.5 mg/dL (0.0-0.3); CALCIUM 7.9 mg/dL (8.4-11.0); CHLORIDE 103 mmol/L (98-107); GLUCOSE 91 mg/dL (70-99); UREA NITROGEN, BLOOD 29 mg/dL (8-21)
[2021-12-16 08:09] LABS: TOTAL BILIRUBIN 26.5 mg/dL (0.0-1.0)
[2021-12-16] MEDS ORDERED: POTASSIUM CHLORIDE 20 MEQ TAB.PRT.SR PO ONE ×2 (08:30→16:00)
[2021-12-16] MEDS: LACTULOSE 20 GM/30 ML UDC PO SCH ×2 (08:39→21:09)
[2021-12-16] MEDS: FUROSEMIDE 20 MG TABLET PO SCH ×2 (08:40→21:09)
[2021-12-16] MEDS: DOCUSATE SODIUM 100 MG CAPSULE PO SCH ×2 (08:40→21:09)
[2021-12-16] MEDS: GABAPENTIN 300 MG CAPSULE PO SCH ×3 (08:40→21:10)
[2021-12-16] MEDS: RIFAXIMIN 550 MG TABLET PO SCH ×2 (09:03→21:00)
[2021-12-16] MEDS: POTASSIUM CHLORIDE 20 MEQ TAB.PRT.SR PO PRN (09:03)
[2021-12-16 13:27] VITALS: BP_SYST 90
[2021-12-16] MEDS ORDERED: KCL 40 mEq in 100 mL (PREMIX) 100 ML IV ONE (15:00)
[2021-12-16 15:37] VITALS: BP_SYST 92
[2021-12-16 16:00] VITALS: BP_SYST 92
[2021-12-16] MEDS ORDERED: LIDOCAINE JECT IV ONE (16:15)
[2021-12-16] MEDS ORDERED: NS 0.45% IV ONE (16:15)
[2021-12-16] MEDS ORDERED: POTASSIUM CHLORIDE IV ONE (16:15)
[2021-12-16] MEDS: amLODIPine BESYLATE 10 MG TABLET PO SCH (16:22)
[2021-12-17 00:36] VITALS: BP_SYST 101
[2021-12-17] MEDS: D5NS 1,000 ML IV SCH ×2 (01:35→20:30)
[2021-12-17 07:47] LABS: BASOPHILS % (AUTO) 0.3 % (0.0-2.0); EOSINOPHILS # (AUTO) 0.4 K/uL (0.0-0.4); EOSINOPHILS % (AUTO) 4.7 % (0.0-4.0); HEMATOCRIT 33.1 % (36-54); LYMPHOCYTES # (AUTO) 0.5 K/uL (1.0-5.5); LYMPHOCYTES % (AUTO) 5.4 % (20.5-51.5); MEAN CORPUSCULAR HEMOGLOBIN 33 pg (27-31); MEAN CORPUSCULAR HGB CONC 36 % (32-36); MEAN CORPUSCULAR VOLUME 91 fL (79.0-98.0); MONOCYTES # (AUTO) 0.4 K/uL (0.0-1.0); MONOCYTES % (AUTO) 5.3 % (1.7-9.3); NEUTROPHILS # (AUTO) 7.1 K/uL (1.8-7.7); NEUTROPHILS % (AUTO) 84.3 % (40.0-70.0); PLATELET COUNT (AUTO) 144 K/uL (130-430); RED BLOOD CELL COUNT(AUTO) 3.66 MIL/uL (4.2-6.2); WHITE BLOOD COUNT (AUTO) 8.4 K/uL (4.8-10.8)
[2021-12-17 07:51] LABS: ANION GAP 10 (5-15); CALCIUM 8.5 mg/dL (8.4-11.0); CHLORIDE 106 mmol/L (98-107); GLUCOSE 96 mg/dL (70-99); UREA NITROGEN, BLOOD 33 mg/dL (8-21)
[2021-12-17 08:00] VITALS: BP_SYST 87
[2021-12-17] MEDS: FUROSEMIDE 20 MG TABLET PO SCH ×2 (08:13→21:01)
[2021-12-17] MEDS ORDERED: NS 500 ML IV ONE (08:15)
[2021-12-17] MEDS: DOCUSATE SODIUM 100 MG CAPSULE PO SCH ×2 (09:07→21:01)
[2021-12-17] MEDS: RIFAXIMIN 550 MG TABLET PO SCH ×2 (09:07→21:27)
[2021-12-17] MEDS: LACTULOSE 20 GM/30 ML UDC PO SCH ×2 (09:07→21:00)
[2021-12-17] MEDS: GABAPENTIN 300 MG CAPSULE PO SCH ×3 (09:07→21:01)
[2021-12-17 11:19] VITALS: BP_SYST 93
[2021-12-17 11:24] VITALS: BP_SYST 87
[2021-12-17] MEDS ORDERED: GENTAMICIN IN NACL, ISO-OSM 100 ML IV ONE (13:00)
[2021-12-17 17:04] VITALS: BP_SYST 99
[2021-12-17 20:00] VITALS: BP_SYST 99
[2021-12-18] VITALS (9 sets, daily range): BP systolic 11–104
[2021-12-18 07:57] LABS: BASOPHILS % (AUTO) 0.6 % (0.0-2.0); EOSINOPHILS # (AUTO) 0.4 K/uL (0.0-0.4); EOSINOPHILS % (AUTO) 4.7 % (0.0-4.0); HEMATOCRIT 34.1 % (36-54); LYMPHOCYTES # (AUTO) 0.3 K/uL (1.0-5.5); LYMPHOCYTES % (AUTO) 3.6 % (20.5-51.5); MEAN CORPUSCULAR HEMOGLOBIN 33 pg (27-31); MEAN CORPUSCULAR HGB CONC 35 % (32-36); MEAN CORPUSCULAR VOLUME 93 fL (79.0-98.0); MONOCYTES # (AUTO) 0.4 K/uL (0.0-1.0); MONOCYTES % (AUTO) 5.1 % (1.7-9.3); NEUTROPHILS # (AUTO) 6.7 K/uL (1.8-7.7); PLATELET COUNT (AUTO) 123 K/uL (130-430); RED BLOOD CELL COUNT(AUTO) 3.68 MIL/uL (4.2-6.2); RED CELL DISTRIBUTION WIDTH 24.1 % (9.0-15.0); WHITE BLOOD COUNT (AUTO) 7.8 K/uL (4.8-10.8)
[2021-12-18 08:05] LABS: ANION GAP 14 (5-15); CHLORIDE 103 mmol/L (98-107); CREATININE 1.58 mg/dL (0.55-1.30); GLUCOSE 95 mg/dL (70-99); UREA NITROGEN, BLOOD 35 mg/dL (8-21)
[2021-12-18 08:09] LABS: INR 2.3 (0.80-1.20); PROTHROMBIN TIME 21.8 SECS (9.5-12.5)
[2021-12-18] MEDS ORDERED: INDOMETHACIN 50 MG SUPP.RECT RC ONE (08:30)
[2021-12-18] MEDS: FUROSEMIDE 20 MG TABLET PO SCH ×2 (09:00→20:26)
[2021-12-18] MEDS ORDERED: MIDODRINE HCL 2.5 MG TABLET (PROAMATINE) PO SCH (09:00)
[2021-12-18] MEDS: GABAPENTIN 300 MG CAPSULE PO SCH ×3 (09:39→20:25)
[2021-12-18] MEDS: MIDODRINE HCL 5 MG TABLET (PROAMATINE) PO SCH ×2 (09:39→20:26)
[2021-12-18] MEDS: DOCUSATE SODIUM 100 MG CAPSULE PO SCH ×2 (09:40→20:25)
[2021-12-18] MEDS: RIFAXIMIN 550 MG TABLET PO SCH ×2 (09:40→20:55)
[2021-12-18] MEDS: LACTULOSE 20 GM/30 ML UDC PO SCH ×2 (09:40→20:59)
[2021-12-18] MEDS: NACL 0.9% 1,000 ML IV SCH ×2 (14:05→20:56)
[2021-12-18 15:16] LABS: INR 1.7 (0.80-1.20); PROTHROMBIN TIME 16.4 SECS (9.5-12.5)
[2021-12-18] MEDS: D5NS 1,000 ML IV SCH (16:30)
[2021-12-18] MEDS: ACETAMINOPHEN 325 MG TABLET PO PRN (20:25)
[2021-12-18 22:25] LABS: INR 1.8 (0.80-1.20)
[2021-12-18] MEDS ORDERED: PHYTONADIONE Non-Formulary 5 MG TABLET PO ONE (23:45)
[2021-12-19] VITALS: BP_SYST 96
[2021-12-19] MEDS ORDERED: PHYTONADIONE (Vitamin K) Oral Solution PO ONE ×3 (00:30→00:45)
[2021-12-19] MEDS ORDERED: PHYTONADIONE 10 MG/ML AMP IM ONE (00:45)
[2021-12-19] MEDS: NACL 0.9% 1,000 ML IV SCH ×3 (05:00→20:30)
[2021-12-19] MEDS: ACETAMINOPHEN 325 MG TABLET PO PRN (06:43)
[2021-12-19 07:57] LABS: ANION GAP 12 (5-15); CALCIUM 8.4 mg/dL (8.4-11.0); CHLORIDE 103 mmol/L (98-107); CREATININE 2.19 mg/dL (0.55-1.30); UREA NITROGEN, BLOOD 41 mg/dL (8-21)
[2021-12-19 08:00] VITALS: BP_SYST 94
[2021-12-19 08:04] LABS: GLUCOSE 76 mg/dL (70-99)
[2021-12-19 08:06] LABS: INR 2.2 (0.80-1.20); PROTHROMBIN TIME 21.2 SECS (9.5-12.5)
[2021-12-19 08:59] LABS: BASOPHILS # (AUTO) 0.1 K/uL (0.0-0.2); BASOPHILS % (AUTO) 0.8 % (0.0-2.0); EOSINOPHILS # (AUTO) 0.2 K/uL (0.0-0.4); EOSINOPHILS % (AUTO) 2.7 % (0.0-4.0); HEMATOCRIT 30.9 % (36-54); HEMOGLOBIN 11.1 g/dL (14.0-18.0); LYMPHOCYTES # (AUTO) 0.4 K/uL (1.0-5.5); LYMPHOCYTES % (AUTO) 4.3 % (20.5-51.5); MEAN CORPUSCULAR HEMOGLOBIN 33 pg (27-31); MEAN CORPUSCULAR HGB CONC 36 % (32-36); MEAN CORPUSCULAR VOLUME 93 fL (79.0-98.0); MONOCYTES # (AUTO) 0.3 K/uL (0.0-1.0); NEUTROPHILS # (AUTO) 7.3 K/uL (1.8-7.7); NEUTROPHILS % (AUTO) 88.2 % (40.0-70.0); PLATELET COUNT (AUTO) 121 K/uL (130-430); RED BLOOD CELL COUNT(AUTO) 3.31 MIL/uL (4.2-6.2); RED CELL DISTRIBUTION WIDTH 23.3 % (9.0-15.0); WHITE BLOOD COUNT (AUTO) 8.2 K/uL (4.8-10.8)
[2021-12-19] MEDS: FUROSEMIDE 20 MG TABLET PO SCH ×2 (09:00→20:29)
[2021-12-19] MEDS: MIDODRINE HCL 5 MG TABLET (PROAMATINE) PO SCH ×2 (09:43→20:30)
[2021-12-19] MEDS: LACTULOSE 20 GM/30 ML UDC PO SCH ×2 (09:43→20:29)
[2021-12-19] MEDS: GABAPENTIN 300 MG CAPSULE PO SCH ×3 (09:44→20:28)
[2021-12-19] MEDS: DOCUSATE SODIUM 100 MG CAPSULE PO SCH ×2 (09:44→20:29)
[2021-12-19] MEDS: RIFAXIMIN 550 MG TABLET PO SCH ×2 (09:44→20:28)
[2021-12-19] MEDS ORDERED: INDOMETHACIN 50 MG SUPP.RECT RC ONE (11:00)
[2021-12-19 12:00] VITALS: BP_SYST 97
[2021-12-19] MEDS: D5NS 1,000 ML IV SCH (12:30)
[2021-12-19 16:00] VITALS: BP_SYST 98
[2021-12-19 19:30] VITALS: BP_SYST 95
[2021-12-19] MEDS: POTASSIUM CHLORIDE 20 MEQ TAB.PRT.SR PO PRN (20:28)
[2021-12-19 23:58] VITALS: BP_SYST 111
[2021-12-20 07:33] VITALS: BP_SYST 106
[2021-12-20] MEDS: GABAPENTIN 300 MG CAPSULE PO SCH ×3 (08:36→20:59)
[2021-12-20] MEDS: D5NS 1,000 ML IV SCH (08:36)
[2021-12-20] MEDS: FUROSEMIDE 20 MG TABLET PO SCH ×2 (08:37→20:57)
[2021-12-20] MEDS: DOCUSATE SODIUM 100 MG CAPSULE PO SCH ×2 (08:37→20:57)
[2021-12-20] MEDS: MIDODRINE HCL 5 MG TABLET (PROAMATINE) PO SCH ×2 (08:37→20:59)
[2021-12-20] MEDS: RIFAXIMIN 550 MG TABLET PO SCH ×2 (08:37→20:59)
[2021-12-20] MEDS: LACTULOSE 20 GM/30 ML UDC PO SCH ×2 (08:38→20:57)
[2021-12-20 11:39] LABS: ANION GAP 11 (5-15); CALCIUM 8.2 mg/dL (8.4-11.0); CHLORIDE 104 mmol/L (98-107); CREATININE 2.48 mg/dL (0.55-1.30); GLUCOSE 84 mg/dL (70-99); UREA NITROGEN, BLOOD 47 mg/dL (8-21)
[2021-12-20 11:57] LABS: ALANINE AMINOTRANSFERASE 67 U/L (12-78); ALBUMIN 1.6 g/dL (3.4-4.8); ASPARTATE AMINOTRANSFERASE 141 U/L (10-37)
[2021-12-20 12:09] LABS: TOTAL BILIRUBIN 28.2 mg/dL (0.0-1.0)
[2021-12-20 14:10] VITALS: BP_SYST 98
[2021-12-20] MEDS: NACL 0.9% 1,000 ML IV SCH ×2 (15:10→21:40)
[2021-12-20 18:31] VITALS: BP_SYST 114
[2021-12-20 19:20] VITALS: BP_SYST 103
[2021-12-20] MEDS: POTASSIUM CHLORIDE 20 MEQ TAB.PRT.SR PO PRN (21:39)
[2021-12-21] VITALS (7 sets, daily range): BP systolic 90–98
[2021-12-21] MEDS: D5NS 1,000 ML IV SCH (04:30)
[2021-12-21 07:40] LABS: INR 1.2 (0.80-1.20); PROTHROMBIN TIME 11.9 SECS (9.5-12.5)
[2021-12-21 07:55] LABS: BASOPHILS % (AUTO) 0.4 % (0.0-2.0); EOSINOPHILS # (AUTO) 0.3 K/uL (0.0-0.4); EOSINOPHILS % (AUTO) 3.1 % (0.0-4.0); HEMATOCRIT 28.6 % (36-54); HEMOGLOBIN 10.3 g/dL (14.0-18.0); LYMPHOCYTES # (AUTO) 0.3 K/uL (1.0-5.5); LYMPHOCYTES % (AUTO) 3.1 % (20.5-51.5); MEAN CORPUSCULAR HEMOGLOBIN 34 pg (27-31); MEAN CORPUSCULAR HGB CONC 36 % (32-36); MEAN CORPUSCULAR VOLUME 94 fL (79.0-98.0); MONOCYTES # (AUTO) 0.4 K/uL (0.0-1.0); MONOCYTES % (AUTO) 4.9 % (1.7-9.3); NEUTROPHILS # (AUTO) 8.2 K/uL (1.8-7.7); NEUTROPHILS % (AUTO) 88.5 % (40.0-70.0); PLATELET COUNT (AUTO) 113 K/uL (130-430); RED BLOOD CELL COUNT(AUTO) 3.06 MIL/uL (4.2-6.2); WHITE BLOOD COUNT (AUTO) 9.2 K/uL (4.8-10.8)
[2021-12-21] MEDS: FUROSEMIDE 20 MG TABLET PO SCH ×2 (08:38→21:00)
[2021-12-21] MEDS: RIFAXIMIN 550 MG TABLET PO SCH ×2 (08:38→21:12)
[2021-12-21] MEDS: GABAPENTIN 300 MG CAPSULE PO SCH ×3 (08:38→21:11)
[2021-12-21] MEDS: MIDODRINE HCL 5 MG TABLET (PROAMATINE) PO SCH ×2 (08:38→21:11)
[2021-12-21] MEDS: DOCUSATE SODIUM 100 MG CAPSULE PO SCH ×2 (08:38→21:10)
[2021-12-21] MEDS: LACTULOSE 20 GM/30 ML UDC PO SCH ×2 (08:40→21:11)
[2021-12-21 08:58] LABS: ALANINE AMINOTRANSFERASE 61 U/L (12-78); ALBUMIN 1.5 g/dL (3.4-4.8); ANION GAP 13 (5-15); ASPARTATE AMINOTRANSFERASE 131 U/L (10-37); CALCIUM 8.1 mg/dL (8.4-11.0); CHLORIDE 105 mmol/L (98-107); CREATININE 2.64 mg/dL (0.55-1.30); GLUCOSE 81 mg/dL (70-99); UREA NITROGEN, BLOOD 51 mg/dL (8-21)
[2021-12-21] MEDS: NACL 0.9% 1,000 ML IV SCH ×2 (15:13→16:19)
[2021-12-22] VITALS: BP_SYST 96
== END 2021-12-22 00:15 | disposition short-term general hospital (02) | DRG 871 ==
LOC: SED 18:23 → SMU 22:11 → STU 12-16 23:19
PROVIDERS: ADMIT Family Medicine; ATTEND Family Medicine
PROC: 30233K1 Transfusion of Nonautologous Frozen Plasma into Peripheral Vein, Percutaneous Approach (ICD-10-PCS; principal; 2021-12-18)
PROC: 05HY33Z Insertion of Infusion Device into Upper Vein, Percutaneous Approach (ICD-10-PCS; 2021-12-18)
DX: A41.9 Sepsis, unspecified organism (principal); K83.1 Obstruction of bile duct; N17.0 Acute kidney failure with tubular necrosis; R65.21 Severe sepsis with septic shock; N39.0 Urinary tract infection, site not specified; E87.1 Hypo-osmolality and hyponatremia; E44.0 Moderate protein-calorie malnutrition; C22.0 Liver cell carcinoma; I13.0 Hypertensive heart and chronic kidney disease with heart failure and stage 1 through stage 4 chronic kidney disease, or unspecified chronic kidney disease; K76.82 Hepatic encephalopathy; R74.01 Elevation of levels of liver transaminase levels; E87.6 Hypokalemia; K74.60 Unspecified cirrhosis of liver; Z20.822 Contact with and (suspected) exposure to COVID-19; E11.22 Type 2 diabetes mellitus with diabetic chronic kidney disease; N18.30 Chronic kidney disease, stage 3 unspecified; I50.9 Heart failure, unspecified; R13.10 Dysphagia, unspecified; Z88.0 Allergy status to penicillin; Z79.899 Other long term (current) drug therapy; Z85.05 Personal history of malignant neoplasm of liver; Z86.711 Personal history of pulmonary embolism; Z86.718 Personal history of other venous thrombosis and embolism; Z86.73 Personal history of transient ischemic attack (TIA), and cerebral infarction without residual deficits; Z87.891 Personal history of nicotine dependence; Z68.28 Body mass index [BMI] 28.0-28.9, adult
CPT/HCPCS: 36415; 71045; 76705; 80048; 80053; 80076; 81000; 82105; 82140; 82247; 82248; 82550; 83605; 83690; 83735; 84132; 84484; 85007; 85025; 85027; 85610-TC; 85730-TC; 86900; 86901; 87040; 87081; 87086; 92610-GN; 93005; 96361; 96365; 99285; C1751; G0378; J1580; J1956; J2405; J3430; J3475; J3480; J7030; J7050; J7060; P9059